=== PATIENT | female | born 1940 | race Caucasian/White ===

== ENCOUNTER 2016-12-15 09:54 | Emergency (ER) | payer MEDICARE, OTHER ==
[~2016-12-15] VITALS: Ht 165.1 cm; Wt 72.0 kg
[~2016-12-15 09:54] MED LIST: CLON0.5T PO; COLA100C3 PO; ESCI10TA PO; LORA-373 PO; LORA1TAB12 PO; NAME10TA PO; PANT40TA3 PO; SYNT88TA PO
[2016-12-15 10:00] VITALS: BP 120/84; PULSE 84; RESP 16; TEMP 98; O2SAT 96
--- NOTE | 2016-12-15 10:10 | PD ---
HPI Chief Complaint: Complaint Time Seen by Provider: 10:03 Travel History International Travel<30 days: No Contact w/Intl Traveler<30days: No Traveled to known affect area: No History of Present Illness HPI MORE CONFUSION PER DAUGHTER AND 1 WEEK H/O LOWER ABD PAIN?, APPARENTLY HAD OUTPT URINE TEST BUT NO RESULTS YET, DAUGHTER BRINGS PT IN FOR FURTHER EVALUATION PFSH Past Medical History Hx Anticoagulant Therapy: Yes (81 MG ASA) Arthritis: Yes Asthma: No Blood Disorders: No Anxiety: Yes Depression: No Heart Rhythm Problems: No Cancer: Yes (SALAVA GLAND) Cardiovascular Problems: No High Cholesterol: No Chemotherapy: Yes Chest Pain: No Congestive Heart Failure: No COPD: No Cerebrovascular Accident: Yes Diabetes: No Diminished Hearing: Yes Endocrine: Yes Gastrointestinal Disorders: Yes (CONSTIPATION) Glaucoma: No Genitourinary: Yes (BURNING) Headaches: No Hepatitis: No Hiatal Hernia: No Hypertension: No Immune Disorder: No Implanted Vascular Access Dvce: Yes Kidney Stones: No Musculoskeletal: Yes (BILATERAL KNEE REPLACEMENT) Neurologic: No Psychiatric: Yes Reproductive: No Respiratory: No Immunizations Current: No Migraines: No Radiation Therapy: Yes (2007) Renal Failure: No Seizures: No Sleep Apnea: Yes (POSSIBLE) Thyroid Disease: Yes (THYROIDECTOMY) PNEUMOCCOCAL Vaccine (Year): 1 Menopausal: Yes Past Surgical History AICD: No Endocrine Surgery: Yes (THYROIDECTOMY) Eye Surgery: Yes (UPPER BLEP-GIULIA) Genitourinary Surgery: Yes (ANTERIOR REPAIR) Gynecologic Surgery: Yes (GIULIA BREAST REDUCTION) Hysterectomy: Yes Insulin Pump: No Joint Replacement: Yes (LEFT KNEE;RIGHT KNEE) Neurologic Surgery: Yes (LUMBAR LAMINECTOMY) Oral Surgery: Yes (JAW REP (YOUTH), SALIVARY GLAND CANCER SX) Pacemaker: No Thoracic Surgery: Yes (CLAVICLE REPAIR.) Other Surgery: Yes (FR JAW) Social History Alcohol Use: No Tobacco Use: No Substance Use: No Allergies-Medications (Allergen,Severity, Reaction): Coded Allergies: Penicillin (Verified Allergy, Intermediate, HIVES, 12/15/16) Reported Meds & Prescriptions Reported Meds & Active Scripts Active Reported Quetiapine (Quetiapine Fumarate) 25 Mg Tab 25 Mg PO BID Seroquel Xr (Quetiapine Fumarate) 1 Each [id number] Meloxicam 15 Mg Tab 15 Mg PO DAILY Escitalopram (Escitalopram Oxalate) 10 Mg Tab 10 Mg PO DAILY Docusate Sodium 100 Mg Cap 100 Mg PO DAILY Alprazolam 0.5 Mg Tab 0.5 Mg PO Q8H PRN Synthroid (Levothyroxine Sodium) 75 Mcg Tab 75 Mcg PO DAILY Clonazepam 0.5 Mg Tab 0.5 Mg PO HS Physical Exam Exam Limitations: Poor Historian Narrative GENERAL: SKIN: Warm and dry. HEAD: Atraumatic. Normocephalic. EYES: Pupils equal and round. No scleral icterus. No injection or drainage. ENT: No nasal bleeding or discharge. Mucous membranes pink and moist. NECK: Trachea midline. No JVD. CARDIOVASCULAR: Regular rate and rhythm. RESPIRATORY: No accessory muscle use. Clear to auscultation. Breath sounds equal bilaterally. GASTROINTESTINAL: Abdomen soft, MILD SUPRAPUBIC TTP, nondistended. Hepatic and splenic margins not palpable. MUSCULOSKELETAL: Extremities without clubbing, cyanosis, or edema. No obvious deformities. NEUROLOGICAL: Awake and alert. No obvious cranial nerve deficits. Motor grossly within normal limits. Five out of 5 muscle strength in the arms and legs. Normal speech. SOME SLIGHT CONFUSION BUT FOLLOWS COMMANDS WELL PSYCHIATRIC: Appropriate mood and affect; insight and judgment normal. Data Data Last Documented VS Vital Signs Date Time Temp Pulse Resp B/P Pulse Ox O2 Delivery O2 Flow Rate FiO2 12/15/16 10:28 18 98 Room Air 12/15/16 10:00 98.0 84 120/84 Orders Complete Blood Count With Diff (12/15/16 10:04) Comprehensive Metabolic Panel (12/15/16 10:04) Troponin I (12/15/16 10:04) Lipase (12/15/16 10:04) Urinalysis - C+S If Indicated (12/15/16 10:04) Ct Abd/Pel W/O Iv Contrast (12/15/16 10:04) Iv Access Insert/Monitor (12/15/16 10:04) Ecg Monitoring (12/15/16 10:04) Oximetry (12/15/16 10:04) Urine Culture (12/15/16 10:08) Levofloxacin (Levaquin) (12/15/16 11:15) Labs Laboratory Tests Test 12/15/16 12/15/16 10:08 10:20 Urine Collection Type CLEAN CATCH Urine Color YELLOW Urine Turbidity CLEAR Urine pH 6.0 Urine Specific [place] 1.012 Urine Protein NEG mg/dL Urine Glucose (UA) NEG mg/dL Urine Ketones NEG mg/dL Urine Occult Blood TRACE Urine Nitrite NEG Urine Bilirubin NEG Urine Leukocyte Esterase TRACE Urine RBC 0-3 /hpf Urine WBC 9-14 /hpf Urine Squamous Epithelial 0-5 /hpf Cells Urine Bacteria MANY /hpf Microscopic Urinalysis Comment CULTURE INDICATED Urine Collection Time 10:08 White Blood Count 3.9 TH/MM3 Red Blood Count 4.61 MIL/MM3 Hemoglobin 14.6 GM/DL Hematocrit 43.5 % Mean Corpuscular Volume 94.4 FL Mean Corpuscular Hemoglobin 31.6 PG Mean Corpuscular Hemoglobin 33.5 % Concent Red Cell Distribution Width 12.4 % Platelet Count 178 TH/MM3 Mean Platelet Volume 8.6 FL Neutrophils (%) (Auto) 59.6 % Lymphocytes (%) (Auto) 24.3 % Monocytes (%) (Auto) 7.6 % Eosinophils (%) (Auto) 7.3 % Basophils (%) (Auto) 1.2 % Neutrophils # (Auto) 2.3 TH/MM3 Lymphocytes # (Auto) 0.9 TH/MM3 Monocytes # (Auto) 0.3 TH/MM3 Eosinophils # (Auto) 0.3 TH/MM3 Basophils # (Auto) 0.0 TH/MM3 CBC Comment DIFF FINAL Differential Comment Sodium Level 147 MEQ/L Potassium Level 3.8 MEQ/L Chloride Level 111 MEQ/L Carbon Dioxide Level 27.7 MEQ/L Anion Gap 8 MEQ/L Blood Urea Nitrogen 22 MG/DL Creatinine 0.75 MG/DL Estimat Glomerular Filtration 75 ML/MIN Rate Random Glucose 82 MG/DL Calcium Level 8.4 MG/DL Total Bilirubin 0.9 MG/DL Aspartate Amino Transf 16 U/L (AST/SGOT) Alanine Aminotransferase 18 U/L (ALT/SGPT) Alkaline Phosphatase 71 U/L Troponin I LESS THAN 0.02 NG/ML Total Protein 6.3 GM/DL Albumin 3.7 GM/DL Lipase 168 U/L [facility] Medical Decision Making Medical Screen Exam Complete: Yes Emergency Medical Condition: Yes Medical Record Reviewed: Yes Differential Diagnosis DEMENTIA V UTI/PNA/INFECTION CAUSING WORSENING CONFUSION V DIVERTIC DZ V APPY V LIVER/ELECTROLYTE/RENAL ISSUES Narrative Course CMP, CBC WERE WNL, CT A/P FOUND OVARIAN CYST ON RT OVARY, NO APPY OR DIVERTIC DZ....UA C/W UTI Diagnosis Primary Impression: UTI (urinary tract infection) Qualified Code: N30.00 - Acute cystitis without hematuria Scripts Levofloxacin 500 Mg [id number] Mg PO DAILY #7 TAB Ref 0 Prov:Kingsley Siddiqui MD 12/15/16 Disposition: 01 DISCHARGE HOME Condition: Stable Kingsley Siddiqui MD Dec 15, 2016 10:10
[2016-12-15 10:14] LABS: BLOOD, URINE TRACE (NEG); GLUCOSE,URINE NEG (NEG); KETONE, URINE NEG (NEG); NITRITE,URINE NEG (NEG)
[2016-12-15] MEDS ORDERED: LEVO.075 PO (10:17)
[2016-12-15] MEDS ORDERED: DOCU100C PO (10:17)
[2016-12-15] MEDS ORDERED: ALPR0.5T3 PO (10:17)
[2016-12-15] MEDS ORDERED: ESCI10TA PO (10:18)
[2016-12-15] MEDS ORDERED: QUET-1 (10:19)
[2016-12-15] MEDS ORDERED: MELO-1 PO (10:19)
[2016-12-15] MEDS ORDERED: QUET1TAB7 PO (10:19)
[2016-12-15 10:21] LABS: METHOD OF COLLECTION CLEAN CATCH; URINE COLOR YELLOW (YELLW/STRAW)
[2016-12-15 10:22] LABS: BACTERIA, URINE MANY /hpf; COMMENT (UR) CULTURE INDICATED; CULTURE IF INDICATED CULTURE INDICATED; RBC, URINE 0-3 /hpf (0-3); SQUAMOUS EPITHELIAL CELL URINE 0-5 /hpf (0-5)
[2016-12-15 10:28] VITALS: RESP 18; O2SAT 98
[2016-12-15 10:40] LABS: AUTOMATED NEUTROPHIL # 2.3 TH/MM3 (1.8-7.7); BASOPHIL % 1.2 % (0.0-2.0); EOSINOPHIL # 0.3 TH/MM3 (0-0.4); EOSINOPHIL % 7.3 % (0.0-4.0); HEMATOCRIT 43.5 % (35.0-46.0); HEMO FLAGS DIFF FINAL; LYMPH % 24.3 % (9.0-44.0); LYMPHOCYTE # 0.9 TH/MM3 (1.0-4.8); MEAN CELL VOLUME 94.4 FL (80.0-100.0); MEAN CORPUSCULAR HEMOGLOBIN 31.6 PG (27.0-34.0); MEAN CORPUSCULAR HGB CONC 33.5 % (32.0-36.0); MONO % 7.6 % (0.0-8.0); NEUT % 59.6 % (16.0-70.0); PLATELET COUNT 178 TH/MM3 (150-450); RED BLOOD COUNT 4.61 MIL/MM3 (4.00-5.30); RED CELL DISTRIBUTION WIDTH 12.4 % (11.6-17.2); WHITE BLOOD COUNT 3.9 TH/MM3 (4.0-11.0)
[2016-12-15 10:46] LABS: CHLORIDE 111 MEQ/L (98-107); POTASSIUM 3.8 MEQ/L (3.5-5.1); SODIUM (NA) 147 MEQ/L (136-145)
[2016-12-15 10:50] LABS: ANION GAP 8 MEQ/L (5-15); BICARBONATE 27.7 MEQ/L (21.0-32.0); BLOOD UREA NITROGEN 22 MG/DL (7-18)
[2016-12-15 10:52] LABS: ALT (GPT) 18 U/L (10-53); AST (GOT) 16 U/L (15-37); GLOMERULAR FILTRATION RATE 75 ML/MIN (>89)
[2016-12-15 10:54] LABS: TOTAL BILIRUBIN ADULT 0.9 MG/DL (0.2-1.0)
--- NOTE | 2016-12-15 10:54 | RADHPO ---
EXAM DATE/TIME: 12/15/2016 10:27 [facility] COMPARISON: CT ABDOMEN & PELVIS W/O CONTRAST, December 08, 2015, 8:04. INDICATIONS : Dementia, possible urine tract infection with abdominal pain and weakness. ORAL CONTRAST: No oral contrast ingested. RADIATION DOSE: 16.71 CTDIvol (mGy) MEDICAL HISTORY : Dementia. Hernia. Cancer salivary gland with radiation 2007. SURGICAL HISTORY : Tonsillectomy. Total knee replacement, right.Bilateral breast reduction. ENCOUNTER: Initial ACUITY: 1 week PAIN SCALE: 6/10 LOCATION: Bilateral middle abdominal. TECHNIQUE: Volumetric scanning of the abdomen and pelvis was performed. Using automated exposure control and ad justment of the mA and/or kV according to patient size, radiation dose was kept as low as reasonably achievable to obtain optimal diagnostic quality images. FINDINGS: LOWER LUNGS: The visualized lower lungs are clear. LIVER: Homogeneous density without lesion. There is no dilation of the biliary tree. No calcified gallston es. SPLEEN: Normal size without lesion. PANCREAS: Within normal limits. KIDNEYS: Normal in size and shape. There is no mass, stone, or hydronephrosis. ADRENAL GLANDS: Within normal limits. VASCULAR: There is no aortic aneurysm. There is atherosclerotic disease of aorta. BOWEL/MESENTERY: The stomach, small bowel, and colon demonstrate no acute abnormality. Small hiatal hernia is present . There is no free intraperitoneal air or fluid. ABDOMINAL WALL: Within normal limits. RETROPERITONEUM: There is no lymphadenopathy. BLADDER: No wall thickening or mass. REPRODUCTIVE: The uterus is absent. In the right adnexa there is a 3.4 x 2.5 cm cystic lesion arising from the righ t ovary. This is stable compared to the prior study. Left ovary demonstrates no abnormality. INGUINAL: There is no lymphadenopathy or hernia. MUSCULOSKELETAL: There are degenerative changes throughout the lumbar spine consisting mostly of severe facet arthrosi s. There has been prior laminectomy inferiorly. Degenerative changes are present at the hip joints. CONCLUSION: 1. No acute finding is identified within the abdomen or pelvis. 2. Stable 3.4 x 2.5 cm right ovarian cystic lesion. It appears simple on this examination. Given the stability, small size, and appearance a benign process is favored. Suggest 12 month followup ultrasou nd to confirm longer-term stability. 3. Nonacute findings include small hiatal hernia and atherosclerotic disease of the aorta. Stanford Petersen MD on December 15, 2016 at 10:44 Board Certified Radiologist. This report was verified electronically.
[2016-12-15 10:55] LABS: ALKALINE PHOSPHATASE 71 U/L (45-117)
[2016-12-15] MEDS ORDERED: LEVO500T8 PO (11:08)
[2016-12-15] MEDS ORDERED: SODIUM CHLORID 0.9% 500 ML INJ 500 ML IV ONE (11:15)
[2016-12-15] MEDS ORDERED: LEVOFLOXACIN 750 MG TAB PO ONE (11:15)
[2016-12-15 11:23] VITALS: BP 170/91; PULSE 66; RESP 16; O2SAT 98
== END 2016-12-15 11:58 | disposition home or self-care (01) ==
LOC: PHED 09:54
DX: R41.0 Disorientation, unspecified (principal); N30.00 Acute cystitis without hematuria; Z86.73 Personal history of transient ischemic attack (TIA), and cerebral infarction without residual deficits; Z79.82 Long term (current) use of aspirin; E07.9 Disorder of thyroid, unspecified; Z88.0 Allergy status to penicillin
CPT/HCPCS: 74176; 80053; 81001; 83690; 84484; 85025; 87086; 96360; 99285; J7040

== ENCOUNTER 2017-06-06 19:18 | Inpatient (IN) | payer MEDICARE ==
[~2017-06-06] VITALS: Ht 160 cm; Wt 74.3 kg
[~2017-06-06 19:18] MED LIST changes: +ALPR0.5T3 PO; -COLA100C3 PO; +DOCU100C15 PO; +LEVO.075 PO; +LEVO500T8 PO; -LORA-373 PO; -LORA1TAB12 PO; +MELO15TA20 PO; -NAME10TA PO; -PANT40TA3 PO; +QUET-1; +QUET1TAB7 PO; -SYNT88TA PO
[2017-06-06 19:20] VITALS: BP 133/77; PULSE 78; RESP 16; TEMP 98.4; O2SAT 95
[2017-06-06 20:27] VITALS: O2SAT 96
[2017-06-06] MEDS ORDERED: SODIUM CHLORIDE 0.9% FLUSH 10 ML FLUSH IV FLUSH PRN (20:30)
--- NOTE | 2017-06-06 20:32 | PD ---
HPI Chief Complaint: Altered Mental Status Time Seen by Provider: 20:09 Travel History International Travel<30 days: No Contact w/Intl Traveler<30days: No Traveled to known affect area: No History of Present Illness HPI 76-year-old female presents to emergency department from her assisted living facility for auditory and visual hallucinations for 1-2 months. Daughter provides most of the history as patient does have advanced Alzheimer's disease. Daughter states that she became violent towards nursing staff today after trying to enter someone else apartment. According to the daughter, Pt says that she has children hiding in her closet and around the neighborhood. When questioning the patient she states that she is at the hospital because she was violent toward her staff. Patient denies fever, chills, chest pain, shortness of breath, headache, visual changes, abdominal pain, nausea, vomiting, diarrhea , trauma. PFSH Past Medical History Hx Anticoagulant Therapy: Yes (81 MG ASA) Arthritis: Yes Asthma: No Blood Disorders: No Anxiety: Yes Depression: No Heart Rhythm Problems: No Cancer: Yes (SALAVA GLAND) Cardiovascular Problems: No High Cholesterol: No Chemotherapy: Yes Chest Pain: No Congestive Heart Failure: No COPD: No Cerebrovascular Accident: Yes Dementia: Yes (LEWY BODY) Diabetes: No Diminished Hearing: Yes Endocrine: Yes Gastrointestinal Disorders: Yes (CONSTIPATION) Glaucoma: No Genitourinary: Yes (BURNING) Headaches: No Hepatitis: No Hiatal Hernia: No Hypertension: No Immune Disorder: No Implanted Vascular Access Dvce: Yes Kidney Stones: No Musculoskeletal: Yes (BILATERAL KNEE REPLACEMENT) Neurologic: No Psychiatric: Yes Reproductive: No Respiratory: No Immunizations Current: No Migraines: No Radiation Therapy: Yes (2007) Renal Failure: No Seizures: No Sleep Apnea: Yes (POSSIBLE) Thyroid Disease: Yes (THYROIDECTOMY) PNEUMOCCOCAL Vaccine (Year): 1 Menopausal: Yes Past Surgical History AICD: No Endocrine Surgery: Yes (THYROIDECTOMY) Eye Surgery: Yes (UPPER BLEP-GIULIA) Genitourinary Surgery: Yes (ANTERIOR REPAIR) Gynecologic Surgery: Yes (GIULIA BREAST REDUCTION) Hysterectomy: Yes Insulin Pump: No Joint Replacement: Yes (LEFT KNEE;RIGHT KNEE) Neurologic Surgery: Yes (LUMBAR LAMINECTOMY) Oral Surgery: Yes (JAW REP (YOUTH), SALIVARY GLAND CANCER SX) Pacemaker: No Thoracic Surgery: Yes (CLAVICLE REPAIR.) Other Surgery: Yes (FR JAW) Social History Alcohol Use: No Tobacco Use: No Substance Use: No Allergies-Medications (Allergen,Severity, Reaction): Coded Allergies: penicillin G (Unverified Allergy, Intermediate, HIVES, 06/06/17) Reported Meds & Prescriptions Reported Meds & Active Scripts Active Reported Seroquel (Quetiapine Fumarate) 50 Mg Tab 75 Mg PO BID Meloxicam 15 Mg Tab 15 Mg PO DAILY Escitalopram (Escitalopram Oxalate) 10 Mg Tab 10 Mg PO DAILY Docusate Sodium 100 Mg Cap 100 Mg PO DAILY Alprazolam 0.5 Mg Tab 0.5 Mg PO Q8H PRN Synthroid (Levothyroxine Sodium) 75 Mcg Tab 75 Mcg PO DAILY Clonazepam 0.5 Mg Tab 0.5 Mg PO HS Review of Systems Except as stated in HPI: all other systems reviewed are Neg Physical Exam Narrative GENERAL: Well-developed well-nourished in no apparent distress. A+Ox3 SKIN: Focused skin assessment warm/dry. HEAD: Atraumatic. Normocephalic. EYES: Pupils equal and round. No scleral icterus. No injection or drainage. EOMI ENT: No nasal bleeding or discharge. Mucous membranes pink and moist. NECK: Trachea midline. No JVD. No lymphadenopathy CARDIOVASCULAR: Regular rate and rhythm. No murmur appreciated. RESPIRATORY: No accessory muscle use. Clear to auscultation. Breath sounds equal bilaterally. GASTROINTESTINAL: Abdomen soft, non-tender, nondistended. Hepatic and splenic margins not palpable. MUSCULOSKELETAL: No obvious deformities. No clubbing. No cyanosis. No edema. BACK: No CVA tenderness. No rash. No point tenderness on palpation of the spine. NEUROLOGICAL: Awake and alert. No obvious cranial nerve deficits. Motor grossly within normal limits. Normal speech. PSYCHIATRIC: Appropriate mood and affect; insight and judgment normal. Data Data Last Documented VS Vital Signs Date Time Temp Pulse Resp B/P (MAP) Pulse Ox O2 Delivery O2 Flow Rate FiO2 06/07/17 00:44 88 18 142/78 (99) 98 Room Air 06/06/17 19:20 98.4 Orders Orders Electrocardiogram (06/06/17 20:22) Complete Blood Count With Diff (06/06/17 20:22) Comprehensive Metabolic Panel (06/06/17 20:22) Thyroid Stimulating Hormone (06/06/17 20:22) Urinalysis - C+S If Indicated (06/06/17 20:22) Blood Glucose (06/06/17 20:22) Ecg Monitoring (06/06/17 20:22) Iv Access Insert/Monitor (06/06/17 20:22) Oximetry (06/06/17 20:22) Sodium Chloride 0.9% Flush (Ns Flush) (06/06/17 20:30) Drug Screen, Random Urine (06/06/17 20:22) Chest, Single Ap (06/06/17 ) Ct Brain W/O Iv Contrast(Rout) (06/06/17 ) Psych Screen (06/06/17 22:03) Quetiapine (Seroquel) (06/07/17 00:45) Clonazepam (Klonopin) (06/07/17 00:45) Admit Order (Ed Use Only) (06/07/17 00:48) Admit To Inpatient Psych (06/07/17 ) Vital Signs (Adult) CASI.Q12H.E (06/07/17 00:48) Activity Oob Ad Blanca (06/07/17 00:48) Level Of Observation (Psych) (06/07/17 00:48) Diet Heart Healthy (06/07/17 Breakfast) Basic Metabolic Panel (Bmp) (06/08/17 06:00) Admit To Inpatient Psych (06/07/17 ) Vital Signs (Adult) CASI.Q12H.E (06/07/17 00:48) Activity Oob Ad Blanca (06/07/17 00:48) Level Of Observation (Psych) (06/07/17 00:48) Basic Metabolic Panel (Bmp) (06/08/17 07:00) Lipid Profile (06/08/17 06:00) Hemoglobin (Hgb) A1c (06/08/17 06:00) Consult Hospitalist (06/07/17 ) Labs Laboratory Tests Test 06/06/17 20:30 06/06/17 21:20 White Blood Count 5.6 TH/MM3 Red Blood Count 4.21 MIL/MM3 Hemoglobin 13.6 GM/DL Hematocrit 40.0 % Mean Corpuscular Volume 95.0 FL Mean Corpuscular Hemoglobin 32.3 PG Mean Corpuscular Hemoglobin Concent 34.0 % Red Cell Distribution Width 12.4 % Platelet Count 166 TH/MM3 Mean Platelet Volume 8.4 FL Neutrophils (%) (Auto) 73.6 % Lymphocytes (%) (Auto) 13.6 % Monocytes (%) (Auto) 7.2 % Eosinophils (%) (Auto) 5.1 % Basophils (%) (Auto) 0.5 % Neutrophils # (Auto) 4.1 TH/MM3 Lymphocytes # (Auto) 0.8 TH/MM3 Monocytes # (Auto) 0.4 TH/MM3 Eosinophils # (Auto) 0.3 TH/MM3 Basophils # (Auto) 0.0 TH/MM3 CBC Comment DIFF FINAL Differential Comment Blood Urea Nitrogen 24 MG/DL Creatinine 0.93 MG/DL Random Glucose 97 MG/DL Total Protein 6.4 GM/DL Albumin 3.7 GM/DL Calcium Level 8.2 MG/DL Alkaline Phosphatase 58 U/L Aspartate Amino Transf (AST/SGOT) 16 U/L Alanine Aminotransferase (ALT/SGPT) 18 U/L Total Bilirubin 0.5 MG/DL Sodium Level 141 MEQ/L Potassium Level 4.2 MEQ/L Chloride Level 107 MEQ/L Carbon Dioxide Level 28.9 MEQ/L Anion Gap 5 MEQ/L Estimat Glomerular Filtration Rate 59 ML/MIN Thyroid Stimulating Hormone 3rd Gen 0.939 uIU/ML Urine Color LIGHT-YELLOW Urine Turbidity CLEAR Urine pH 6.5 Urine Specific [place] 1.013 Urine Protein NEG mg/dL Urine Glucose (UA) NEG mg/dL Urine Ketones NEG mg/dL Urine Occult Blood NEG Urine Nitrite NEG Urine Bilirubin NEG Urine Urobilinogen LESS THAN 2.0 MG/DL Urine Leukocyte Esterase NEG Urine RBC 1 /hpf Urine WBC LESS THAN 1 /hpf Urine Squamous Epithelial Cells 1 /hpf Urine Amorphous Sediment RARE Urine Mucus FEW /lpf Microscopic Urinalysis Comment CATH-CULT NOT IND Urine Opiates Screen NEG Urine Barbiturates Screen NEG Urine Amphetamines Screen NEG Urine Benzodiazepines Screen POS Urine Cocaine Screen NEG Urine Cannabinoids Screen NEG MDM Medical Decision Making Medical Screen Exam Complete: Yes Emergency Medical Condition: Yes Differential Diagnosis Delirium, acute on chronic Alzheimer's disease, sundowner syndrome, CVA, urinary tract infection Narrative Course 76-year-old female presents to emergency department from her assisted living facility for auditory and visual hallucinations for 1-2 months. Daughter provides most of the history as patient does have advanced Alzheimer's disease. Daughter states that she became violent towards nursing staff today after trying to enter someone else apartment. According to the daughter, Pt says that she has children hiding in her closet and around the neighborhood. When questioning the patient she states that she is at the hospital because she was violent toward her staff. Patient denies fever, chills, chest pain, shortness of breath, headache, visual changes, abdominal pain, nausea, vomiting, diarrhea , trauma. Vital signs stable EKG- sinus rhythm without ST elevations or depressions. Laboratory Tests Test 06/06/17 20:30 06/06/17 21:20 White Blood Count 5.6 TH/MM3 Red Blood Count 4.21 MIL/MM3 Hemoglobin 13.6 GM/DL Hematocrit 40.0 % Mean Corpuscular Volume 95.0 FL Mean Corpuscular Hemoglobin 32.3 PG Mean Corpuscular Hemoglobin Concent 34.0 % Red Cell Distribution Width 12.4 % Platelet Count 166 TH/MM3 Mean Platelet Volume 8.4 FL Neutrophils (%) (Auto) 73.6 % Lymphocytes (%) (Auto) 13.6 % Monocytes (%) (Auto) 7.2 % Eosinophils (%) (Auto) 5.1 % Basophils (%) (Auto) 0.5 % Neutrophils # (Auto) 4.1 TH/MM3 Lymphocytes # (Auto) 0.8 TH/MM3 Monocytes # (Auto) 0.4 TH/MM3 Eosinophils # (Auto) 0.3 TH/MM3 Basophils # (Auto) 0.0 TH/MM3 CBC Comment DIFF FINAL Differential Comment Blood Urea Nitrogen 24 MG/DL Creatinine 0.93 MG/DL Random Glucose 97 MG/DL Total Protein 6.4 GM/DL Albumin 3.7 GM/DL Calcium Level 8.2 MG/DL Alkaline Phosphatase 58 U/L Aspartate Amino Transf (AST/SGOT) 16 U/L Alanine Aminotransferase (ALT/SGPT) 18 U/L Total Bilirubin 0.5 MG/DL Sodium Level 141 MEQ/L Potassium Level 4.2 MEQ/L Chloride Level 107 MEQ/L Carbon Dioxide Level 28.9 MEQ/L Anion Gap 5 MEQ/L Estimat Glomerular Filtration Rate 59 ML/MIN Thyroid Stimulating Hormone 3rd Gen 0.939 uIU/ML Urine Color LIGHT-YELLOW Urine Turbidity CLEAR Urine pH 6.5 Urine Specific [place] 1.013 Urine Protein NEG mg/dL Urine Glucose (UA) NEG mg/dL Urine Ketones NEG mg/dL Urine Occult Blood NEG Urine Nitrite NEG Urine Bilirubin NEG Urine Urobilinogen LESS THAN 2.0 MG/DL Urine Leukocyte Esterase NEG Urine RBC 1 /hpf Urine WBC LESS THAN 1 /hpf Urine Squamous Epithelial Cells 1 /hpf Urine Amorphous Sediment RARE Urine Mucus FEW /lpf Microscopic Urinalysis Comment CATH-CULT NOT IND Urine Opiates Screen NEG Urine Barbiturates Screen NEG Urine Amphetamines Screen NEG Urine Benzodiazepines Screen POS Urine Cocaine Screen NEG Urine Cannabinoids Screen NEG Last [address] 06/06/17 0000 Signed Impressions: Service Date/Time: May 22:39 - CONCLUSION: 1. Chronic periventricular and subcortical white matter small vessel ischemic changes are stable. 2. No acute infarct, acute hemorrhage, mass effect or extra-axial fluid collections. Brock Chan MD Chest X-Ray 06/06/17 0000 Signed Impressions: Service Date/Time: May 22:17 - CONCLUSION: 1. Minimal left basilar streakiness consistent with atelectasis. 2. Elevation of the left hemidiaphragm. Brock Chan MD Patient lives in [facility]. Daughter provides most of the history of this patient. Patient does follow Dr. Sweeney for Alzheimer's disease. Her primary care physician is Dr. Bailon. Patient has no complaints today but does understand why she is here. Patient apparently had a similar episode in August this year where she was prescribed Seroquel. Patient takes 75 mg twice a day. Daughter would appreciated and evaluation and potentially medication change. Patient is medically cleared to have a psych evaluation. Condition: Stable Yvonne Jimenez Jun 06, 2017 20:32
[2017-06-06 20:49] LABS: AUTOMATED NEUTROPHIL # 4.1 TH/MM3 (1.8-7.7); BASOPHIL % 0.5 % (0.0-2.0); EOSINOPHIL # 0.3 TH/MM3 (0-0.4); EOSINOPHIL % 5.1 % (0.0-4.0); HEMO FLAGS DIFF FINAL; LYMPH % 13.6 % (9.0-44.0); LYMPHOCYTE # 0.8 TH/MM3 (1.0-4.8); MEAN CORPUSCULAR HEMOGLOBIN 32.3 PG (27.0-34.0); MONO % 7.2 % (0.0-8.0); NEUT % 73.6 % (16.0-70.0); PLATELET COUNT 166 TH/MM3 (150-450); RED BLOOD COUNT 4.21 MIL/MM3 (4.00-5.30); RED CELL DISTRIBUTION WIDTH 12.4 % (11.6-17.2); WHITE BLOOD COUNT 5.6 TH/MM3 (4.0-11.0)
[2017-06-06 21:10] LABS: ALT (GPT) 18 U/L (10-53)
[2017-06-06 21:20] LABS: ALKALINE PHOSPHATASE 58 U/L (45-117); TOTAL BILIRUBIN ADULT 0.5 MG/DL (0.2-1.0)
[2017-06-06 21:23] LABS: ANION GAP 5 MEQ/L (5-15); AST (GOT) 16 U/L (15-37); BICARBONATE 28.9 MEQ/L (21.0-32.0); BLOOD UREA NITROGEN 24 MG/DL (7-18); CHLORIDE 107 MEQ/L (98-107); GLOMERULAR FILTRATION RATE 59 ML/MIN (>89); SODIUM (NA) 141 MEQ/L (136-145)
[2017-06-06 21:28] LABS: POTASSIUM 4.2 MEQ/L (3.5-5.1)
[2017-06-06 21:41] LABS: BLOOD, URINE NEG (NEG); COMMENT (UR) CATH-CULT NOT IND; CULTURE IF INDICATED CATH CULTURE NOT IND; GLUCOSE,URINE NEG (NEG); KETONE, URINE NEG (NEG); MUCUS URINE FEW /lpf (OCC); NITRITE,URINE NEG (NEG); PH, URINE 6.5 (5.0-8.5); SQUAMOUS EPITHELIAL CELL URINE 1 /hpf (0-5); URINE COLOR LIGHT-YELLOW (YELLW/STRAW)
--- NOTE | 2017-06-06 22:31 | RADRPT ---
EXAM DATE/TIME: 06/06/2017 22:17 [facility] COMPARISON: CHEST SINGLE AP, June 12, 2016, 11:34. INDICATIONS : AMS for 1-2 months. MEDICAL HISTORY : Stroke. Dementia. Alzheimer's disease. SURGICAL HISTORY : None. ENCOUNTER: Initial ACUITY: 2 months PAIN SCORE: 0/10 LOCATION: Bilateral chest FINDINGS: Minimal left basilar streakiness is noted consistent with atelectasis. There is elevation of the left hemidiaphragm. The heart is stable. The right lung is clear. The pulmonary vascular pattern is pierce l. CONCLUSION: 1. Minimal left basilar streakiness consistent with atelectasis. 2. Elevation of the left hemidiaphragm. Brock Chan MD on June 06, 2017 at 22:29 Board Certified Radiologist. This report was verified electronically.
--- NOTE | 2017-06-06 22:51 | RADRPT ---
EXAM DATE/TIME: 06/06/2017 22:39 [facility] COMPARISON: CT BRAIN W/O CONTRAST, December 13, 2015, 12:01. INDICATIONS : Altered mental status. RADIATION DOSE: 31.41 CTDIvol (mGy) MEDICAL HISTORY : Alzheimer's; Cardiovascular disease salivary gland cancer SURGICAL HISTORY : Thyroidectomy. ENCOUNTER: Initial ACUITY: 1 day PAIN SCALE: 0/10 LOCATION: cranial TECHNIQUE: Multiple contiguous axial images were obtained of the head. Using automated exposure control and adj ustment of the mA and/or kV according to patient size, radiation dose was kept as low as reasonably a chievable to obtain optimal diagnostic quality images. DICOM format image data is available electro nically for review and comparison. FINDINGS: CEREBRUM: The ventricles are normal for age. No evidence of midline shift, mass lesion, hemorrhage or acute in farction. No extra-axial fluid collections are seen. Chronic periventricular and subcortical white m atter small vessel ischemic changes are noted and are stable. POSTERIOR FOSSA: The cerebellum and brainstem are intact. The 4th ventricle is midline. The cerebellopontine angle i s unremarkable. EXTRACRANIAL: The visualized portion of the orbits is intact. SKULL: The calvaria is intact. No evidence of skull fracture. CONCLUSION: 1. Chronic periventricular and subcortical white matter small vessel ischemic changes are stable. 2. No acute infarct, acute hemorrhage, mass effect or extra-axial fluid collections. Brock Chan MD on June 06, 2017 at 22:48 Board Certified Radiologist. This report was verified electronically.
[2017-06-07] MEDS ORDERED: SERO50TA PO (00:25)
[2017-06-07] MEDS ORDERED: clonazePAM 0.5 MG TAB PO SCH (00:37)
[2017-06-07 00:44] VITALS: BP 142/78; PULSE 88; RESP 18; O2SAT 98
[2017-06-07] MEDS ORDERED: QUEtiapine FUMARATE 25 MG TAB PO ONE (00:45)
[2017-06-07] MEDS ORDERED: clonazePAM 0.5 MG TAB PO ONE (00:45)
[2017-06-07] MEDS ORDERED: LORazepam 0.5 MG TAB age > 65 yrs PO PRN (01:00)
[2017-06-07] MEDS ORDERED: MAGNESIUM HYDROXIDE SUSP 30 ML CUP PO PRN (01:00)
[2017-06-07] MEDS ORDERED: diphenhydrAMINE HCL 50 MG/ML VIAL - HS PRN IM (01:00)
[2017-06-07] MEDS ORDERED: BENZTROPINE MESYLATE 2 MG/2 ML VIAL IM PRN (01:00)
[2017-06-07] MEDS ORDERED: ACETAMINOPHEN 325 MG TAB PO PRN (01:00)
[2017-06-07] MEDS ORDERED: ALUMINUM/MAGNESIUM/SIMETH 30 ML CUP PO PRN (01:00)
[2017-06-07] MEDS ORDERED: LORazepam 2 MG/ML VIAL - age > 65 yrs IM PRN (01:00)
[2017-06-07] MEDS ORDERED: diphenhydrAMINE HCL 50 MG/ML VIAL IM PRN (01:00)
[2017-06-07] MEDS ORDERED: diphenhydrAMINE HCL 50 MG CAP - HS PRN PO (01:00)
[2017-06-07] MEDS ORDERED: diphenhydrAMINE HCL 50 MG CAP PO PRN (01:00)
[2017-06-07] MEDS ORDERED: traZODone HCL 50 MG TAB PO PRN (01:00)
[2017-06-07] MEDS ORDERED: BENZTROPINE MESYLATE 1 MG TAB PO PRN (01:00)
[2017-06-07 01:40] VITALS: BP 138/88; PULSE 81; RESP 16; TEMP 97.8; O2SAT 96
--- NOTE | 2017-06-07 08:02 | EKG ---
Date Performed: 06/06/2017 Time Performed: 20:34:13 PTAGE: 76 years EKG: Baseline artifact present Sinus rhythm LOW QRS VOLTAGE IN PRECORDIAL LEADS possible INFERIOR MYOCARDIAL INFARCTION ABNORMAL ECG No signific ant change from prior electrocardiogram. PREVIOUS TRACING : 06/06/2017 20.33 DOCTOR: Chandler Dao Interpretating Date/Time 06/07/2017 08:01:18
[2017-06-07] MEDS ORDERED: QUEtiapine FUMARATE 25 MG TAB PO SCH (09:00)
--- NOTE | 2017-06-07 09:28 | PD.CONS ---
HPI Service [facility] Hospitalists Consult Requested By Psychiatry Reason for Consult Medical management Primary Care Physician Nicolas Bailon MD Diagnoses: (1) Hypothyroidism (2) Dementia due to Alzheimer's disease History of Present Illness Ms. Darling is a pleasant 76-year-old female with a history of Alzheimer's dementia who presented to the emergency department on 06/06/2017 due to auditory and visual hallucinations that has been going on for 1-2 months. Patient was admitted to the psychiatry unit. Hospitalist service was consulted for medical management. Patient currently does not have any medical concerns. She denies any chest pain, shortness of breath, cough, fever, abdominal pain. Denies any changes in bowel or bladder habits. Review of Systems Except as stated in HPI: all other systems reviewed are Neg Past Family Social History Allergies: Coded Allergies: penicillin G (Unverified Allergy, Intermediate, HIVES, 06/06/17) Past Medical History Alzheimer's dementia Hypothyroidism Past Surgical History Bilateral knee replacement Thyroid surgery Bilateral breast reduction surgery Lumbar laminectomy Clavicle repair Active Ordered Medications Current Medications Medications (Trade) Dose Ordered Sig/Tj Route Start Time Stop Time Status Last Admin (NS Flush) 2 ml UNSCH PRN IV FLUSH 06/06/17 20:30 (Ativan) 0.5 mg Q12H PRN PO 06/07/17 01:00 (Ativan Inj) 0.5 mg Q12H PRN IM 06/07/17 01:00 (Atarax) 50 mg Q6H PRN PO 06/07/17 01:00 (Benadryl) 50 mg Q6H PRN PO 06/07/17 01:00 (Benadryl Inj) 50 mg Q6H PRN IM 06/07/17 01:00 (Cogentin) 1 mg Q12H PRN PO 06/07/17 01:00 (Cogentin Inj) 1 mg Q12H PRN IM 06/07/17 01:00 (Benadryl) 50 mg HS PRN PO 06/07/17 01:00 (Benadryl Inj) 50 mg HS PRN IM 06/07/17 01:00 (Desyrel) 50 mg HS PRN PO 06/07/17 01:00 (Tylenol) 650 mg Q4H PRN PO 06/07/17 01:00 (Milk Of Magnesia Liq) 30 ml DAILY PRN PO 06/07/17 01:00 (Mag-Al Plus Susp Liq) 30 ml Q6H PRN PO 06/07/17 01:00 (SEROquel) 12.5 mg BID PO 06/07/17 09:00 06/07/17 08:47 Family History Patient denies any family history of Alzheimer's or Parkinson's. Social History She denies using tobacco, alcohol, illicit drugs. Physical Exam Vital Signs Vital Signs Date Time Temp Pulse Resp B/P (MAP) Pulse Ox O2 Delivery O2 Flow Rate FiO2 06/07/17 01:40 97.8 81 16 138/88 (105) 96 06/07/17 01:32 06/07/17 00:44 88 18 142/78 (99) 98 Room Air 06/06/17 20:27 96 Room Air 06/06/17 19:20 98.4 78 16 133/77 (95) 95 Room Air Physical Exam GENERAL: This is a well-nourished, well-developed patient, in no apparent distress. SKIN: No rashes, ecchymoses or lesions. Cool and dry. HEAD: Atraumatic. Normocephalic. No temporal or scalp tenderness. EYES: Pupils equal round and reactive. Extraocular motions intact. No scleral icterus. No injection or drainage. ENT: Nose without bleeding, purulent drainage or septal hematoma. Throat without erythema, tonsillar hypertrophy or exudate. Uvula midline. Airway patent. NECK: Trachea midline. No JVD or lymphadenopathy. Supple, nontender, no meningeal signs. CARDIOVASCULAR: Regular rate and rhythm without murmurs, gallops, or rubs. RESPIRATORY: Clear to auscultation. Breath sounds equal bilaterally. No wheezes , rales, or rhonchi. GASTROINTESTINAL: Abdomen soft, non-tender, nondistended. No hepato-splenomegaly , or palpable masses. No guarding. MUSCULOSKELETAL: Extremities without clubbing, cyanosis, or edema. No joint tenderness, effusion, or edema noted. No calf tenderness. Negative Homans sign bilaterally. NEUROLOGICAL: Awake and alert. Cranial nerves II through XII intact. Motor and sensory grossly within normal limits. Five out of 5 muscle strength in all muscle groups. Normal speech. Laboratory Laboratory Tests Test 06/06/17 20:30 06/06/17 21:20 White Blood Count 5.6 Red Blood Count 4.21 Hemoglobin 13.6 Hematocrit 40.0 Mean Corpuscular Volume 95.0 Mean Corpuscular Hemoglobin 32.3 Mean Corpuscular Hemoglobin Concent 34.0 Red Cell Distribution Width 12.4 Platelet Count 166 Mean Platelet Volume 8.4 Neutrophils (%) (Auto) 73.6 Lymphocytes (%) (Auto) 13.6 Monocytes (%) (Auto) 7.2 Eosinophils (%) (Auto) 5.1 Basophils (%) (Auto) 0.5 Neutrophils # (Auto) 4.1 Lymphocytes # (Auto) 0.8 Monocytes # (Auto) 0.4 Eosinophils # (Auto) 0.3 Basophils # (Auto) 0.0 CBC Comment DIFF FINAL Differential Comment Blood Urea Nitrogen 24 Creatinine 0.93 Random Glucose 97 Total Protein 6.4 Albumin 3.7 Calcium Level 8.2 Alkaline Phosphatase 58 Aspartate Amino Transf (AST/SGOT) 16 Alanine Aminotransferase (ALT/SGPT) 18 Total Bilirubin 0.5 Sodium Level 141 Potassium Level 4.2 Chloride Level 107 Carbon Dioxide Level 28.9 Anion Gap 5 Estimat Glomerular Filtration Rate 59 Thyroid Stimulating Hormone 3rd Gen 0.939 Urine Color LIGHT-YELLOW Urine Turbidity CLEAR Urine pH 6.5 Urine Specific [place] 1.013 Urine Protein NEG Urine Glucose (UA) NEG Urine Ketones NEG Urine Occult Blood NEG Urine Nitrite NEG Urine Bilirubin NEG Urine Urobilinogen LESS THAN 2.0 Urine Leukocyte Esterase NEG Urine RBC 1 Urine WBC LESS THAN 1 Urine Squamous Epithelial Cells 1 Urine Amorphous Sediment RARE Urine Mucus FEW Microscopic Urinalysis Comment CATH-CULT NOT IND Urine Opiates Screen NEG Urine Barbiturates Screen NEG Urine Amphetamines Screen NEG Urine Benzodiazepines Screen POS Urine Cocaine Screen NEG Urine Cannabinoids Screen NEG Result Diagram: 06/06/17202906/06/172029 Imaging Last Impressions Head CT 06/06/17 0000 Signed Impressions: Service Date/Time: May 22:39 - CONCLUSION: 1. Chronic periventricular and subcortical white matter small vessel ischemic changes are stable. 2. No acute infarct, acute hemorrhage, mass effect or extra-axial fluid collections. Brock Chan MD Chest X-Ray 06/06/17 0000 Signed Impressions: Service Date/Time: May 22:17 - CONCLUSION: 1. Minimal left basilar streakiness consistent with atelectasis. 2. Elevation of the left hemidiaphragm. Brock Chan MD Assessment and Plan Problem List: (1) Dementia due to Alzheimer's disease ICD Code: G30.9 - Alzheimer's disease, unspecified; F02.80 - Dementia in other diseases classified elsewhere without behavioral disturbance Status: Acute (2) Hypothyroidism ICD Code: E03.9 - Hypothyroidism, unspecified Status: Chronic Assessment and Plan Ms. Darling is a pleasant 76-year-old female with a history of hypothyroidism, Alzheimer's dementia who presented to the emergency department on 06/06/2017 due to one to 2 month long duration of visual and auditory hallucinations. Patient currently does not have any medical concerns. - Alzheimer's dementia - continue outpatient follow-up with neurology. - Acute psychosis - patient is currently on Seroquel. Management per psychiatry. - Hypothyroidism - continue levothyroxine 75 g daily. TSH 0.939. Full code. Ambulation. Patient is hemodynamically stable. We'll sign off. Please call us with any questions. Bianca Cool DO Jun 07, 2017 9:28 am
--- NOTE | 2017-06-07 13:44 | HHI.HP ---
Provisional Diagnosis Admission Date Jun 07, 2017 at 00:54 [place] I. Dimension other diseases f 02.81, other Alzheimer's disease G 30.8 Certification of Person's Competence To Provide Express and Informed Consent I have personally examined Sonam Darling , a person being served at [facility] on, Jun 07, 2017 13:31. Express and informed consent means consent voluntarily given in writing, by a competent person, after sufficient explanation and disclosure of the subject matter involved to enable the person to make a knowing and willful decision without any element of force, fraud, deceit, duress, or other form of constraint or coercion. This person is 18 years of age or older, is not now known to be incompetent to consent to treatment with a guardian advocate, and does not have a health care surrogate or proxy currently making medical treatment decisions. I have found this person to be one of the following: [] Competent to provide express and informed consent, as defined above, for voluntary admission to this facility and is competent to provide express and informed consent for treatment. He/she has the consistent capacity to make well reasoned, willful, and knowing decisions concerning his or her medical or mental health treatment. The person fully and consistently understands the purpose of the admission for examination/placement and is fully capable of personally exercising all rights assured under [place] Incompetent to provide express and informed consent to voluntary admission, and this is incompetent to provide express and informed consent to treatment. The person must be transferred to involuntary status and a petition for a guardian advocate filed with the Circuit Court. [] Refusing to provide express and informed consent to voluntary admission but is competent to provide express and informed consent for treatment. The person must be discharged or transferred to involuntary status. Form shall be completed within 24 hours of a person's arrival at the receiving facility and filed in the clinical record of each person: 1. Admitted on a voluntary basis 2. Permitted to provide express and informed consent to his/her own treatment 3. Allowed to transfer from involuntary to voluntary status 4. Prior to permitting a person to consent to his or her own treatment after having been previously found incompetent to consent to treatment. History of Present Illness Capacity: Lacks Capacity Psych Chief Complaint: patient demented delusional aggressive HPI Patient is a 76-year-old white female who comes here under [place] act signed been illegible signature dated 06/07/17 at 002 2 PM that document reviewed stating actively hallucinating and delusional. Patient seen screened in the ED urine toxicology positive for benzodiazepines. It appears the patient is living in an residential facility with her second of 30+ years believes that she has multiple children they've been held and the apartment next to hers was pounding on the door becoming very threatening delusional and aggressive situation. Was bar-to-bar ED showed similar behaviors in the ED necessitating an ETO. At the present time patient sitting quietly in her room on 2600. She is calm quite pleasant with me but oriented only to self. When asked about her "children" she became quite ambiguous saying she has 8 or 10 children but unable to give any further details. She denies any prior psychiatric contact hospitalization psychotropic medication. Though she has been seen in consultation here in September 2015 diagnosis of dementia at that time I will also call the patient's daughter Rose at [phone] verifies the history of dementia, and these behavioral disturbances. It appears they have attempted to titrate Seroquel to help her behaviors but is not been very successful. Daughter verifies the no past psychiatric history prior to the diagnosis of dementia. Daughter also states they have been a social drinker in the past. But denies other drug use. At this time patient does meet criteria for involuntary psychiatric hospitalization the [place] act. Also for she does not have capacity thus I'll ask for healthcare surrogate and guarded advocate. We will chest with patient the 2500 unit we will adjust the patient's Seroquel to 50 mg noon and 4 PM and 8 PM. We'll discontinue her Ativan and allow the small dose of Klonopin at at bedtime. We'll meet with the patient's daughter around noon on Sunday 06/10. We did need to discuss placement issues Review of Systems ROS Limitations: Clinical Condition, Altered Mental Status Past Psych History Psychological trauma history Patient denies daughter denies Violence risk - others (6 mos) Patient somewhat aggressive with her neighbor due to delusions relating to her "children" Violence risk - self (6 mos) Low Substance Abuse History Drugs/Alcohol past 12 months Denies Past Family Social History Coded Allergies: penicillin G (Unverified Allergy, Intermediate, HIVES, 06/06/17) Reported Medications Meloxicam (Meloxicam) 15 Mg Tab, 15 MG PO DAILY for Arthritis Pain, #30 TAB 0 Refills 12/15/16 Escitalopram (Escitalopram) 10 Mg Tab, 10 MG PO DAILY, #30 TAB 0 Refills 12/15/16 Docusate Sodium (Docusate Sodium) 100 Mg Cap, 100 MG PO DAILY for Prevent Constipation, #60 CAP 0 Refills 12/15/16 Levothyroxine (Synthroid) 75 Mcg Tab, 75 MCG PO DAILY for Thyroid, #30 TAB 0 Refills 12/15/16 Clonazepam (Clonazepam) 0.5 Mg Tab, 0.5 MG PO HS, #60 TAB 0 Refills 06/12/16 Discontinued Reported Medications Quetiapine (Seroquel) 50 Mg Tab, 75 MG PO BID, #60 TAB 0 Refills 06/07/17 Quetiapine (Quetiapine) 25 Mg Tab, 25 MG PO BID, #60 TAB 0 Refills 12/15/16 Quetiapine Fumarate (Seroquel Xr) 1 Each [id number] 12/15/16 Alprazolam (Alprazolam) 0.5 Mg Tab, 0.5 MG PO Q8H Y for ANXIETY, TAB 0 Refills 12/15/16 Discontinued Scripts Levofloxacin (Levofloxacin) 500 Mg Tablet, 500 MG PO DAILY for Infection, #7 TAB 0 Refills Prov:Kingsley Siddiqui MD 12/15/16 Current Medications Medications (Trade) Dose Ordered Sig/Tj Route Start Time Stop Time Status Last Admin (NS Flush) 2 ml UNSCH PRN IV FLUSH 06/06/17 20:30 (Ativan) 0.5 mg Q12H PRN PO 06/07/17 01:00 (Ativan Inj) 0.5 mg Q12H PRN IM 06/07/17 01:00 (Atarax) 50 mg Q6H PRN PO 06/07/17 01:00 (Benadryl) 50 mg Q6H PRN PO 06/07/17 01:00 (Benadryl Inj) 50 mg Q6H PRN IM 06/07/17 01:00 (Cogentin) 1 mg Q12H PRN PO 06/07/17 01:00 (Cogentin Inj) 1 mg Q12H PRN IM 06/07/17 01:00 (Benadryl) 50 mg HS PRN PO 06/07/17 01:00 (Benadryl Inj) 50 mg HS PRN IM 06/07/17 01:00 (Desyrel) 50 mg HS PRN PO 06/07/17 01:00 (Tylenol) 650 mg Q4H PRN PO 06/07/17 01:00 (Milk Of Magnesia Liq) 30 ml DAILY PRN PO 06/07/17 01:00 (Mag-Al Plus Susp Liq) 30 ml Q6H PRN PO 06/07/17 01:00 (SEROquel) 12.5 mg BID PO 06/07/17 09:00 06/07/17 08:47 (Synthroid) 75 mcg DAILY@0600 PO 06/08/17 06:00 Family Psych History Unknown at this time due to patient's cognitive disability Social History Patient lives with second in a residential facility Patient's Strengths (min. 2) Patient verbal pleasant irritable [facility] Physical Exam Patient seen and screened in ED exam reviewed and agreed with patient sitting quietly and that her bed, her walkers standing next to her she is in no acute distress, no respiratory distress no complaints of abdominal pain patient moving all 4 extremities without difficulty Vital Signs Vital Signs Date Time Temp Pulse Resp B/P (MAP) Pulse Ox O2 Delivery O2 Flow Rate FiO2 06/07/17 01:40 97.8 81 16 138/88 (105) 96 06/07/17 00:44 Room Air I/O 06/07/17 06/07/17 06/08/17 08:00 16:00 00:00 Intake Total 240 ml Balance 240 ml Lab Results Test 06/06/17 20:30 06/06/17 21:20 White Blood Count 5.6 TH/MM3 Red Blood Count 4.21 MIL/MM3 Hemoglobin 13.6 GM/DL Hematocrit 40.0 % Mean Corpuscular Volume 95.0 FL Mean Corpuscular Hemoglobin 32.3 PG Mean Corpuscular Hemoglobin Concent 34.0 % Red Cell Distribution Width 12.4 % Platelet Count 166 TH/MM3 Mean Platelet Volume 8.4 FL Neutrophils (%) (Auto) 73.6 % Lymphocytes (%) (Auto) 13.6 % Monocytes (%) (Auto) 7.2 % Eosinophils (%) (Auto) 5.1 % Basophils (%) (Auto) 0.5 % Neutrophils # (Auto) 4.1 TH/MM3 Lymphocytes # (Auto) 0.8 TH/MM3 Monocytes # (Auto) 0.4 TH/MM3 Eosinophils # (Auto) 0.3 TH/MM3 Basophils # (Auto) 0.0 TH/MM3 CBC Comment DIFF FINAL Differential Comment Blood Urea Nitrogen 24 MG/DL Creatinine 0.93 MG/DL Random Glucose 97 MG/DL Total Protein 6.4 GM/DL Albumin 3.7 GM/DL Calcium Level 8.2 MG/DL Alkaline Phosphatase 58 U/L Aspartate Amino Transf (AST/SGOT) 16 U/L Alanine Aminotransferase (ALT/SGPT) 18 U/L Total Bilirubin 0.5 MG/DL Sodium Level 141 MEQ/L Potassium Level 4.2 MEQ/L Chloride Level 107 MEQ/L Carbon Dioxide Level 28.9 MEQ/L Anion Gap 5 MEQ/L Estimat Glomerular Filtration Rate 59 ML/MIN Thyroid Stimulating Hormone 3rd Gen 0.939 uIU/ML Urine Color LIGHT-YELLOW Urine Turbidity CLEAR Urine pH 6.5 Urine Specific [place] 1.013 Urine Protein NEG mg/dL Urine Glucose (UA) NEG mg/dL Urine Ketones NEG mg/dL Urine Occult Blood NEG Urine Nitrite NEG Urine Bilirubin NEG Urine Urobilinogen LESS THAN 2.0 MG/DL Urine Leukocyte Esterase NEG Urine RBC 1 /hpf Urine WBC LESS THAN 1 /hpf Urine Squamous Epithelial Cells 1 /hpf Urine Amorphous Sediment RARE Urine Mucus FEW /lpf Microscopic Urinalysis Comment CATH-CULT NOT IND Urine Opiates Screen NEG Urine Barbiturates Screen NEG Urine Amphetamines Screen NEG Urine Benzodiazepines Screen POS Urine Cocaine Screen NEG Urine Cannabinoids Screen NEG Mental Status Examination Appearance: Appropriate Consciousness: Alert Orientation: Person (vaguely) Motor Activity: Other (use his walker) Speech: Unremarkable Language: Adequate Fund of Knowledge: Adequate Attention and Concentration: Easily Distracted Memory: Impaired Mood: Anxious, Other (mildly dysphoric) Affect: Other (decreased range and intensity) Thought Process & Associations: Disorganized Thought Content: Bizarre thinking, Delusional Hallucination Type: None Delusion Type: Bizarre Suicidal Ideation: No Suicidal Plan: No Suicidal Intention: No Homicidal Ideation: No Homicidal Plan: No Homicidal Intention: No Insight: Poor Judgment: Poor Assessment & Plan Problem List: (1) OTHER ALZHEIMER'S DISEASE ICD Codes: G30.8 - OTHER ALZHEIMER'S DISEASE (2) DEMENTIA IN OTH DISEASES CLASSD ELSWHR W BEHAVIORAL DISTURB ICD Codes: F02.81 - DEMENTIA IN OTH DISEASES CLASSD ELSWHR W BEHAVIORAL DISTURB Assessment & Plan Estimated LOS: 5-7 days this time patient does meet [place] criteria I'll do first opinion request second opinion. I also feel patient does not have capacity thus I'll ask for healthcare surrogate and guardian advocate. I did talk with the patient's daughter Rose at [phone] is willing to be health care surrogate. We will adjust her Seroquel at this time and continue observation plan on meeting with family on Saturday about noon to 1:00 Discharge Planning We need to discuss this with family but she returned to her assisted living residential facility with her or if she needs more structure environment Request HC Surrog/Guard Advoc?: Yes Stanford Moody MD Jun 07, 2017 13:44
[2017-06-07] MEDS: QUEtiapine FUMARATE 25 MG TAB PO SCH ×2 (16:48→20:00)
[2017-06-07] MEDS: clonazePAM 0.5 MG TAB PO SCH (21:00)
[2017-06-08 05:56] VITALS: BP 119/72; PULSE 71; RESP 16; TEMP 96.8; O2SAT 97
[2017-06-08] MEDS: LEVOTHYROXINE SODIUM 75 MCG TAB PO SCH (06:00)
[2017-06-08] MEDS: MELOXICAM 15 MG TAB PO SCH (08:31)
[2017-06-08] MEDS: DOCUSATE SODIUM 100 MG CAP PO SCH (09:00)
[2017-06-08 10:35] LABS: ANION GAP 6 MEQ/L (5-15); BICARBONATE 29.9 MEQ/L (21.0-32.0); BLOOD UREA NITROGEN 25 MG/DL (7-18); CHLORIDE 105 MEQ/L (98-107); GLOMERULAR FILTRATION RATE 57 ML/MIN (>89); POTASSIUM 4.1 MEQ/L (3.5-5.1); SODIUM (NA) 141 MEQ/L (136-145)
[2017-06-08 10:37] LABS: HDL CHOLESTEROL 69.7 MG/DL (40.0-60.0); LDL CHOLESTEROL 154 MG/DL (0-99)
[2017-06-08] MEDS: QUEtiapine FUMARATE 25 MG TAB PO SCH ×3 (12:00→21:50)
[2017-06-08 13:01] LABS: HEMOGLOBIN A1b 0.8 %; HEMOGLOBIN Ao 85.9 %; HEMOGLOBIN F 1.2 %; HEMOGLOBIN P3 3.5 %
[2017-06-08 17:55] VITALS: BP 147/80; PULSE 94; RESP 17; TEMP 97.7; O2SAT 97
--- NOTE | 2017-06-08 18:18 | HHI.PYPN ---
Subjective Chief Complaint: patient demented delusional aggressive Remarks Patient was seen and case discussed with nursing. Patient is pleasant and cooperative with exam. Compliant with medications. Patient is very paranoid with a bizarre hallucination that there is a snake in her bed, under the bed, and her clothes. She ran out of the room complaining of this. No other delusions were elicited. Behaving well on the unit per nursing. Mental Status Examination Appearance: Appropriate Consciousness: Alert Orientation: Person (vaguely) Motor Activity: Other (use his walker) Speech: Unremarkable Language: Adequate Fund of Knowledge: Adequate Attention and Concentration: Easily Distracted Memory: Impaired Mood: Anxious, Other (mildly dysphoric) Affect: Other (decreased range and intensity) Thought Process & Associations: Disorganized Thought Content: Bizarre thinking, Hallucinations, Delusional Hallucination Type: Visual (snakes) Delusion Type: Bizarre Suicidal Ideation: No Suicidal Plan: No Suicidal Intention: No Homicidal Ideation: No Homicidal Plan: No Homicidal Intention: No Insight: Poor Judgment: Poor Results Labs Test 06/08/17 09:00 Blood Urea Nitrogen 25 MG/DL Creatinine 0.95 MG/DL Random Glucose 109 MG/DL Calcium Level 8.3 MG/DL Sodium Level 141 MEQ/L Potassium Level 4.1 MEQ/L Chloride Level 105 MEQ/L Carbon Dioxide Level 29.9 MEQ/L Anion Gap 6 MEQ/L Estimat Glomerular Filtration Rate 57 ML/MIN Hemoglobin A1c 5.4 % Triglycerides Level 168 MG/DL Cholesterol Level 257 MG/DL LDL Cholesterol 154 MG/DL HDL Cholesterol 69.7 MG/DL Cholesterol/HDL Ratio 3.68 RATIO Vitals/IOs Vital Signs Date Time Temp Pulse Resp B/P (MAP) Pulse Ox O2 Delivery O2 Flow Rate FiO2 06/08/17 17:55 97.7 94 17 147/80 (102) 97 06/07/17 00:44 Room Air Intake and Output 06/08/17 06/08/17 06/09/17 08:00 16:00 00:00 Intake Total 240 ml 240 ml Balance 240 ml 240 ml Assessment & Plan Problem List: (1) OTHER ALZHEIMER'S DISEASE ICD Codes: G30.8 - OTHER ALZHEIMER'S DISEASE (2) DEMENTIA IN OTH DISEASES CLASSD ELSWHR W BEHAVIORAL DISTURB ICD Codes: F02.81 - DEMENTIA IN OTH DISEASES CLASSD ELSWHR W BEHAVIORAL DISTURB Assessment & Plan Continue current treatment plan Justification for Cont. Inpt. Patient will decompensate in a less restrictive setting Request HC Surrog/Guard Advoc?: Yes Davis Webb DO Jun 08, 2017 18:18
[2017-06-08] MEDS: clonazePAM 0.5 MG TAB PO SCH (21:50)
[2017-06-09 05:35] VITALS: BP 133/76; PULSE 78; RESP 18; TEMP 96.8
[2017-06-09] MEDS: LEVOTHYROXINE SODIUM 75 MCG TAB PO SCH (06:21)
[2017-06-09] MEDS: MELOXICAM 15 MG TAB PO SCH (08:47)
[2017-06-09] MEDS: DOCUSATE SODIUM 100 MG CAP PO SCH (08:47)
[2017-06-09] MEDS: QUEtiapine FUMARATE 25 MG TAB PO SCH ×3 (11:18→20:48)
--- NOTE | 2017-06-09 17:22 | HHI.PYPN ---
Subjective Chief Complaint: patient demented delusional aggressive Remarks This is a request for second opinion. Admission note was reviewed and I agree with the contents. Case was discussed with nursing and patient evaluated today. Patient remains acutely psychotic with visual hallucinations. She is perseverative on a snake which today is inside her body. She is vigilant. Difficult to redirect the conversation about anything her hallucination. Compliant with medications Mental Status Examination Appearance: Appropriate Consciousness: Alert Orientation: Person (vaguely) Motor Activity: Other (use his walker) Speech: Unremarkable Language: Adequate Fund of Knowledge: Adequate Attention and Concentration: Easily Distracted Memory: Impaired Mood: Anxious, Other (mildly dysphoric) Affect: Other (decreased range and intensity) Thought Process & Associations: Disorganized Thought Content: Bizarre thinking, Hallucinations, Delusional Hallucination Type: Visual (snakes) Delusion Type: Bizarre Suicidal Ideation: No Suicidal Plan: No Suicidal Intention: No Homicidal Ideation: No Homicidal Plan: No Homicidal Intention: No Insight: Poor Judgment: Poor Results Vitals/IOs Vital Signs Date Time Temp Pulse Resp B/P (MAP) Pulse Ox O2 Delivery O2 Flow Rate FiO2 06/09/17 05:35 96.8 78 18 133/76 (95) 06/08/17 17:55 97 06/07/17 00:44 Room Air Intake and Output 06/09/17 06/09/17 06/09/17 07:59 15:59 23:59 Intake Total 360 ml Balance 360 ml Assessment & Plan Problem List: (1) OTHER ALZHEIMER'S DISEASE ICD Codes: G30.8 - OTHER ALZHEIMER'S DISEASE (2) DEMENTIA IN OTH DISEASES CLASSD ELSWHR W BEHAVIORAL DISTURB ICD Codes: F02.81 - DEMENTIA IN OTH DISEASES CLASSD ELSWHR W BEHAVIORAL DISTURB Assessment & Plan I agree with the first opinion to continue petition. Criteria include psychosis Justification for Cont. Inpt. Patient would decompensate in a less restrictive setting Request HC Surrog/Guard Advoc?: Yes Davis Webb DO Jun 09, 2017 17:22
[2017-06-09 17:57] VITALS: BP 127/78; PULSE 107; RESP 18; TEMP 97.5; O2SAT 95
[2017-06-09] MEDS: clonazePAM 0.5 MG TAB PO SCH (20:47)
[2017-06-10 00:17] VITALS: BP 117/70
[2017-06-10 05:24] VITALS: BP 138/72; PULSE 68; RESP 16; TEMP 97.9; O2SAT 96
[2017-06-10] MEDS: LEVOTHYROXINE SODIUM 75 MCG TAB PO SCH (06:06)
[2017-06-10] MEDS: MELOXICAM 15 MG TAB PO SCH (08:28)
[2017-06-10] MEDS: DOCUSATE SODIUM 100 MG CAP PO SCH (08:28)
[2017-06-10] MEDS: QUEtiapine FUMARATE 25 MG TAB PO SCH (11:58)
--- NOTE | 2017-06-10 15:48 | HHI.PYPN ---
Subjective Chief Complaint: patient demented delusional aggressive Remarks Met with patient's 2 daughters and her along with counselor Sharon, they shared her history of increased psychosis and delusions. Leading to increased aggressive behaviors. This appears to be on top of dementing process. Patient seen later in the day by me with nurse Eugene continue somewhat confused but feeling people are going to come and pick her up and take her weight today. For now continue treatment. We'll condense the Seroquel to bedtime and offer small dose Respinol Review of Systems Except as stated in HPI: all other systems reviewed are Neg Mental Status Examination Appearance: Appropriate Consciousness: Alert Orientation: Person (vaguely) Motor Activity: Other (use his walker) Speech: Unremarkable Language: Adequate Fund of Knowledge: Adequate Attention and Concentration: Easily Distracted Memory: Impaired Mood: Anxious, Other (mildly dysphoric) Affect: Other (decreased range and intensity) Thought Process & Associations: Disorganized Thought Content: Bizarre thinking, Hallucinations, Delusional Hallucination Type: Visual (snakes) Delusion Type: Bizarre Suicidal Ideation: No Suicidal Plan: No Suicidal Intention: No Homicidal Ideation: No Homicidal Plan: No Homicidal Intention: No Insight: Poor Judgment: Poor Results Vitals/IOs Vital Signs Date Time Temp Pulse Resp B/P (MAP) Pulse Ox O2 Delivery O2 Flow Rate FiO2 06/10/17 05:24 97.9 68 16 138/72 (94) 96 06/07/17 00:44 Room Air Intake and Output 06/10/17 06/10/17 06/11/17 08:00 16:00 00:00 Intake Total 360 ml Balance 360 ml Assessment & Plan Problem List: (1) OTHER ALZHEIMER'S DISEASE ICD Codes: G30.8 - OTHER ALZHEIMER'S DISEASE (2) DEMENTIA IN OTH DISEASES CLASSD ELSWHR W BEHAVIORAL DISTURB ICD Codes: F02.81 - DEMENTIA IN OTH DISEASES CLASSD ELSWHR W BEHAVIORAL DISTURB Assessment & Plan Estimated LOS: days patient demented and psychotic, she medication adjustment above Justification for Cont. Inpt. At this time patient would decompensated placed in a lower level of care Discharge Planning To be determined family to look at more restrictive settings than shelter or supervised living Request HC Surrog/Guard Advoc?: Yes Stanford Moody MD Jun 10, 2017 15:48
--- NOTE | 2017-06-10 16:00 | PD.TTN ---
Patient Problems 1. Discharge planning 2. Medication compliance 3. Knowledge deficit 4. Lack of coping skills Progress Toward Goals Provider Present: Dr. Yana Moody Provider Input: Dr. Moody reported that this is a new patient and we will be meeting with the family today and 1:00 pm. Psychiatric Counselors Present: MAYRA Ribeiro Psych Therapist Input: New patient. Counselor and Dr. Moody will be meeting with the patient's family today at 1:00 pm to discuss treatment plan, medication management, progress, and plan for discharge. Group Spec/RT/OT/BALTAZAR Present: Jacinto Bonilla OT Documentation Scribe: MAYRA Ribeiro Date Resolved: Jun 10, 2017 Sharon Beck Jun 10, 2017 16:00
[2017-06-10] MEDS: risperiDONE 0.5 MG TAB PO SCH (16:34)
[2017-06-10 18:00] VITALS: BP 126/88; PULSE 97; RESP 16; TEMP 97.5; O2SAT 97
[2017-06-10] MEDS: clonazePAM 0.5 MG TAB PO SCH (21:03)
[2017-06-10] MEDS: QUEtiapine FUMARATE 100 MG TAB PO SCH (21:04)
[2017-06-11 05:13] VITALS: BP 130/78; PULSE 82; RESP 18; TEMP 97.8; O2SAT 97
[2017-06-11] MEDS: LEVOTHYROXINE SODIUM 75 MCG TAB PO SCH (05:43)
[2017-06-11] MEDS: MELOXICAM 15 MG TAB PO SCH (08:18)
[2017-06-11] MEDS: DOCUSATE SODIUM 100 MG CAP PO SCH (08:18)
[2017-06-11] MEDS: risperiDONE 0.5 MG TAB PO SCH ×2 (08:18→16:14)
--- NOTE | 2017-06-11 13:18 | HHI.PYPN ---
Subjective Chief Complaint: patient demented delusional aggressive Remarks Patient seen in her room with nurse Eugene and counselor Sharon, patient today states that her flying fish coming from [place] into her window in her bedroom and that by flushing her toilet the fish disappeared. Patient compliant with medications. Showing no insight. Continues to remain diffusely confused. For now continue treatment Review of Systems Except as stated in HPI: all other systems reviewed are Neg Mental Status Examination Appearance: Appropriate Consciousness: Alert Orientation: Person (vaguely) Motor Activity: Other (use his walker) Speech: Unremarkable Language: Adequate Fund of Knowledge: Adequate Attention and Concentration: Easily Distracted Memory: Impaired Mood: Anxious, Other (mildly dysphoric) Affect: Other (decreased range and intensity) Thought Process & Associations: Disorganized Thought Content: Bizarre thinking, Hallucinations, Delusional Hallucination Type: Visual (snakes) Delusion Type: Bizarre Suicidal Ideation: No Suicidal Plan: No Suicidal Intention: No Homicidal Ideation: No Homicidal Plan: No Homicidal Intention: No Insight: Poor Judgment: Poor Results Vitals/IOs Vital Signs Date Time Temp Pulse Resp B/P (MAP) Pulse Ox O2 Delivery O2 Flow Rate FiO2 06/11/17 05:13 97.8 82 18 130/78 (95) 97 Intake and Output 06/11/17 06/11/17 06/12/17 08:00 16:00 00:00 Intake Total 2 ml Balance 2 ml Assessment & Plan Problem List: (1) OTHER ALZHEIMER'S DISEASE ICD Codes: G30.8 - OTHER ALZHEIMER'S DISEASE (2) DEMENTIA IN OTH DISEASES CLASSD ELSWHR W BEHAVIORAL DISTURB ICD Codes: F02.81 - DEMENTIA IN OTH DISEASES CLASSD ELSWHR W BEHAVIORAL DISTURB Assessment & Plan Estimated LOS: days patient is confused demented and psychotic. Compliant medications. For now continue treatment Justification for Cont. Inpt. At this time patient will decompensate the placed in a lower level of care Discharge Planning Placement may become somewhat problematic for this lady Request HC Surrog/Guard Advoc?: Yes Stanford Moody MD Jun 11, 2017 13:18
[2017-06-11 17:54] VITALS: BP 128/82; PULSE 109; RESP 18; TEMP 97.4; O2SAT 98
[2017-06-11] MEDS: clonazePAM 0.5 MG TAB PO SCH (20:13)
[2017-06-11] MEDS: QUEtiapine FUMARATE 100 MG TAB PO SCH (20:13)
[2017-06-12 05:51] VITALS: BP 118/62; PULSE 113; RESP 16; TEMP 97.8; O2SAT 96
[2017-06-12] MEDS: LEVOTHYROXINE SODIUM 75 MCG TAB PO SCH (06:11)
[2017-06-12] MEDS: DOCUSATE SODIUM 100 MG CAP PO SCH (08:06)
[2017-06-12] MEDS: MELOXICAM 15 MG TAB PO SCH (08:08)
[2017-06-12] MEDS: risperiDONE 0.5 MG TAB PO SCH ×2 (08:08→16:00)
--- NOTE | 2017-06-12 11:33 | HHI.PYPN ---
Subjective Chief Complaint: patient demented delusional aggressive Remarks Patient seen in her room with nurse Mally, patient calm cooperative, chart reviewed patient compliant medications. However patient today states while rubbing her stomach that there are "worms in my stomach" that her up with it by a "man with big head does it" and that he does it because "doesn't like me" will increase scheduled Respinol to 1 mg twice a day Review of Systems Except as stated in HPI: all other systems reviewed are Neg Mental Status Examination Appearance: Appropriate Consciousness: Alert Orientation: Person (vaguely) Motor Activity: Other (use his walker) Speech: Unremarkable Language: Adequate Fund of Knowledge: Adequate Attention and Concentration: Easily Distracted Memory: Impaired Mood: Anxious, Other (mildly dysphoric) Affect: Other (decreased range and intensity) Thought Process & Associations: Disorganized Thought Content: Bizarre thinking, Hallucinations, Delusional Hallucination Type: Visual (snakes), Tactile (perhaps some tactile related to "worms in my stomach") Delusion Type: Bizarre Suicidal Ideation: No Suicidal Plan: No Suicidal Intention: No Homicidal Ideation: No Homicidal Plan: No Homicidal Intention: No Insight: Poor Judgment: Poor Results Vitals/IOs Vital Signs Date Time Temp Pulse Resp B/P (MAP) Pulse Ox O2 Delivery O2 Flow Rate FiO2 06/12/17 05:51 97.8 113 16 118/62 (80) 96 Intake and Output 06/12/17 06/12/17 06/13/17 08:00 16:00 00:00 Intake Total 240 ml Balance 240 ml Assessment & Plan Problem List: (1) OTHER ALZHEIMER'S DISEASE ICD Codes: G30.8 - OTHER ALZHEIMER'S DISEASE (2) DEMENTIA IN OTH DISEASES CLASSD ELSWHR W BEHAVIORAL DISTURB ICD Codes: F02.81 - 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 Will increase Respinol to 1 mg twice a day Justification for Cont. Inpt. At this time patient will decompensate if placed on lower level of care Discharge Planning Place at this time remains problematic Request HC Surrog/Guard Advoc?: Yes Stanford Mooyd MD Jun 12, 2017 11:33
--- NOTE | 2017-06-12 11:40 | PD.TTN ---
Patient Problems 1. Discharge planning 2. Medication compliance 3. Knowledge deficit 4. Lack of coping skills Progress Toward Goals Provider Present: Dr. Yana Moody Provider Input: 06/12/17; Patient is stable on current medication, however she needs to be watch for improvement Dr. Moody reported that this is a new patient and we will be meeting with the family today and 1:00 pm. Nurse(s) Present: Mally JONES Nurse(s) Input: 06/12/17; patient is eating meals, and taking medication, somewhat delusional content and paranoid behavior Psych Therapist Input: 06/12/2017 Patient will be assess for needed level of outpatient service/care New patient. Counselor and Dr. Moody will be meeting with the patient's family today at 1:00 pm to discuss treatment plan, medication management, progress, and plan for discharge. Group Spec/RT/OT/BALTAZAR Present: DELANEY Valdovinos Group Spec/RT/OT/BALTAZAR Input: Patient attend some groups Documentation Scribe: KACY Krishna Date Resolved: Jun 10, 2017 Rivka Saavedra Jun 12, 2017 11:40
[2017-06-12 18:00] VITALS: BP 123/79; PULSE 104; RESP 20; TEMP 97.3; O2SAT 94
[2017-06-12] MEDS: clonazePAM 0.5 MG TAB PO SCH (20:48)
[2017-06-12] MEDS: QUEtiapine FUMARATE 100 MG TAB PO SCH (20:48)
[2017-06-13] MEDS: LEVOTHYROXINE SODIUM 75 MCG TAB PO SCH (06:10)
[2017-06-13 06:12] VITALS: BP 126/59; PULSE 98; RESP 17; TEMP 97.6; O2SAT 96
[2017-06-13] MEDS: risperiDONE 0.5 MG TAB PO SCH ×2 (08:00→16:00)
[2017-06-13] MEDS: MELOXICAM 15 MG TAB PO SCH (09:00)
[2017-06-13] MEDS: DOCUSATE SODIUM 100 MG CAP PO SCH (09:00)
--- NOTE | 2017-06-13 10:17 | HHI.PYPN ---
Subjective Chief Complaint: patient demented delusional aggressive Remarks Patient seen in room with nurse Mally, patient had staff lower shades over the window yesterday because she felt worse makes outside the window. Today patient states that she is with at least 6 children. Patient showing no insight into these delusions. She is compliant with her medications or just adjusted yesterday. For now continue treatment patient scheduled for [place] [facility] today Review of Systems Except as stated in HPI: all other systems reviewed are Neg Mental Status Examination Appearance: Appropriate Consciousness: Alert Orientation: Person (vaguely) Motor Activity: Other (use his walker) Speech: Unremarkable Language: Adequate Fund of Knowledge: Adequate Attention and Concentration: Easily Distracted Memory: Impaired Mood: Anxious, Other (mildly dysphoric) Affect: Other (decreased range and intensity) Thought Process & Associations: Disorganized Thought Content: Bizarre thinking, Hallucinations, Delusional Hallucination Type: Visual (snakes), Tactile (perhaps some tactile related to "worms in my stomach") Delusion Type: Bizarre Suicidal Ideation: No Suicidal Plan: No Suicidal Intention: No Homicidal Ideation: No Homicidal Plan: No Homicidal Intention: No Insight: Poor Judgment: Poor Results Vitals/IOs Vital Signs Date Time Temp Pulse Resp B/P (MAP) Pulse Ox O2 Delivery O2 Flow Rate FiO2 06/13/17 06:12 97.6 98 17 126/59 (81) 96 Intake and Output 06/13/17 06/13/17 06/14/17 08:00 16:00 00:00 Intake Total 240 ml 480 ml Balance 240 ml 480 ml Assessment & Plan Problem List: (1) OTHER ALZHEIMER'S DISEASE ICD Codes: G30.8 - OTHER ALZHEIMER'S DISEASE (2) DEMENTIA IN OTH DISEASES CLASSD ELSWHR W BEHAVIORAL DISTURB ICD Codes: F02.81 - 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 For now continue treatment Justification for Cont. Inpt. At this time patient will decompensate the placed in a lower level of care Discharge Planning Placement pending perhaps in conjunction with her and a higher level of care Request HC Surrog/Guard Advoc?: Yes Stanford Moody MD Jun 13, 2017 10:16
[2017-06-13 18:16] VITALS: BP 136/72; PULSE 123; RESP 17; TEMP 97.5; O2SAT 97
[2017-06-13] MEDS: QUEtiapine FUMARATE 100 MG TAB PO SCH (20:46)
[2017-06-13] MEDS: clonazePAM 0.5 MG TAB PO SCH (20:46)
[2017-06-14 05:59] VITALS: BP 82/50; PULSE 77; RESP 15; TEMP 98; O2SAT 92
[2017-06-14] MEDS: LEVOTHYROXINE SODIUM 75 MCG TAB PO SCH (06:13)
[2017-06-14] MEDS: MELOXICAM 15 MG TAB PO SCH (08:57)
[2017-06-14] MEDS: risperiDONE 0.5 MG TAB PO SCH (08:57)
[2017-06-14] MEDS: DOCUSATE SODIUM 100 MG CAP PO SCH (08:57)
--- NOTE | 2017-06-14 15:15 | HHI.PYPN ---
Subjective Chief Complaint: patient demented delusional aggressive Remarks Patient seen in her room with nurse Michael, patient laying very flat very still the hands at her side in her bed. She does make eye contact with me but her responses are delayed and whisper. When asked about her somatic complaints she shakes her head but then when I ask her about the "worms" are "baby's" she becomes somewhat anxious with a sad look on her face. We will increase patient' s Respinol to 1 mg a.m. 2 mg 4 PM Review of Systems Except as stated in HPI: all other systems reviewed are Neg Mental Status Examination Appearance: Appropriate Consciousness: Alert Orientation: Person (vaguely) Motor Activity: Other (use his walker) Speech: Unremarkable Language: Adequate Fund of Knowledge: Adequate Attention and Concentration: Easily Distracted Memory: Impaired Mood: Anxious, Other (mildly dysphoric) Affect: Other (decreased range and intensity) Thought Process & Associations: Disorganized Thought Content: Bizarre thinking, Hallucinations, Delusional Hallucination Type: Visual (snakes), Tactile (perhaps some tactile related to "worms in my stomach") Delusion Type: Bizarre Suicidal Ideation: No Suicidal Plan: No Suicidal Intention: No Homicidal Ideation: No Homicidal Plan: No Homicidal Intention: No Insight: Poor Judgment: Poor Results Vitals/IOs Vital Signs Date Time Temp Pulse Resp B/P (MAP) Pulse Ox O2 Delivery O2 Flow Rate FiO2 06/14/17 05:59 98.0 77 15 82/50 (61) 92 Intake and Output 06/14/17 06/14/17 06/15/17 08:00 16:00 00:00 Intake Total 0 ml 840 ml Balance 0 ml 840 ml Assessment & Plan Problem List: (1) OTHER ALZHEIMER'S DISEASE ICD Codes: G30.8 - OTHER ALZHEIMER'S DISEASE (2) DEMENTIA IN OTH DISEASES CLASSD ELSWHR W BEHAVIORAL DISTURB ICD Codes: F02.81 - 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 See medication adjustment above Justification for Cont. Inpt. At this time patient would decompensate and placed in the lower level of care Discharge Planning Hopefully Will return home with family Request HC Surrog/Guard Advoc?: Yes Stanford Moody MD Jun 14, 2017 15:15
[2017-06-14] MEDS: risperiDONE 1 MG TAB PO SCH (16:59)
[2017-06-14 17:47] VITALS: BP 156/93; PULSE 104; RESP 16; TEMP 97.3; O2SAT 95
[2017-06-14] MEDS: clonazePAM 0.5 MG TAB PO SCH (21:16)
[2017-06-14] MEDS: QUEtiapine FUMARATE 100 MG TAB PO SCH (21:16)
[2017-06-14] MEDS: hydrOXYzine HCL 50 MG TAB PO PRN (23:43)
[2017-06-15 05:37] VITALS: BP 141/74; PULSE 86; RESP 17; TEMP 97.9; O2SAT 94
[2017-06-15] MEDS: LEVOTHYROXINE SODIUM 75 MCG TAB PO SCH (06:10)
[2017-06-15] MEDS: DOCUSATE SODIUM 100 MG CAP PO SCH (08:09)
[2017-06-15] MEDS: risperiDONE 0.5 MG TAB PO SCH (08:09)
[2017-06-15] MEDS: MELOXICAM 15 MG TAB PO SCH (08:09)
[2017-06-15] MEDS: risperiDONE 1 MG TAB PO SCH (15:40)
[2017-06-15 18:00] VITALS: BP 132/89; PULSE 97; RESP 17; TEMP 97.4; O2SAT 97
--- NOTE | 2017-06-15 18:28 | HHI.PYPN ---
Subjective Chief Complaint: patient demented delusional aggressive Remarks patient was seen and case discussed with nursing. Pt told nursing she felt nauseous but later denied it with me. She felt dizzy which has resolved. Appears anxious, BP slightly elevated. No psychotic symptoms elicited today Mental Status Examination Appearance: Appropriate Consciousness: Alert Orientation: Person (vaguely) Motor Activity: Other (use his walker) Speech: Unremarkable Language: Adequate Fund of Knowledge: Adequate Attention and Concentration: Easily Distracted Memory: Impaired Mood: Anxious, Other (mildly dysphoric) Affect: Anxious Thought Process & Associations: Disorganized Thought Content: Bizarre thinking, Delusional Hallucination Type: Tactile (perhaps some tactile related to "worms in my stomach") Delusion Type: Bizarre Suicidal Ideation: No Suicidal Plan: No Suicidal Intention: No Homicidal Ideation: No Homicidal Plan: No Homicidal Intention: No Insight: Poor Judgment: Poor Results Vitals/IOs Vital Signs Date Time Temp Pulse Resp B/P (MAP) Pulse Ox O2 Delivery O2 Flow Rate FiO2 06/15/17 18:00 97.4 97 17 132/89 (103) 97 Intake and Output 06/15/17 06/15/17 06/16/17 08:00 16:00 00:00 Intake Total 480 ml 240 ml 720 ml Balance 480 ml 240 ml 720 ml Assessment & Plan Problem List: (1) OTHER ALZHEIMER'S DISEASE ICD Codes: G30.8 - OTHER ALZHEIMER'S DISEASE (2) DEMENTIA IN OTH DISEASES CLASSD ELSWHR W BEHAVIORAL DISTURB ICD Codes: F02.81 - 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 Will hold antipsychotics if dizziness returns Justification for Cont. Inpt. Patient would decompensate in a less restrictive setting Request HC Surrog/Guard Advoc?: Yes Davis Webb DO Jun 15, 2017 18:28
[2017-06-15 18:30] VITALS: BP_SYST 110; BP_SYST 115; BP_DIAS 72; BP_DIAS 75; PULSE 113
[2017-06-15] MEDS: clonazePAM 0.5 MG TAB PO SCH (20:36)
[2017-06-15] MEDS: QUEtiapine FUMARATE 100 MG TAB PO SCH (20:36)
[2017-06-16] VITALS: BP 150/79; PULSE 100; RESP 18; TEMP 98.7; O2SAT 96
[2017-06-16] MEDS: LEVOTHYROXINE SODIUM 75 MCG TAB PO SCH (05:56)
[2017-06-16 06:01] VITALS: BP 134/78; PULSE 109; RESP 17; TEMP 97.4; O2SAT 96
[2017-06-16] MEDS: risperiDONE 0.5 MG TAB PO SCH (07:39)
[2017-06-16] MEDS: DOCUSATE SODIUM 100 MG CAP PO SCH (07:39)
[2017-06-16] MEDS: MELOXICAM 15 MG TAB PO SCH (07:39)
[2017-06-16] MEDS: hydrOXYzine HCL 50 MG TAB PO PRN (10:45)
[2017-06-16 12:09] VITALS: BP 135/58; PULSE 119; RESP 18; TEMP 97.2; O2SAT 97
--- NOTE | 2017-06-16 13:58 | HHI.PYPN ---
Subjective Chief Complaint: patient demented delusional aggressive Remarks Pt was seen and case discussed with nursing. Per nursing, pt is quite vigilant throughout the day. She is confused, oriented x1. Denies any VH or bizarre delusions today. per nursing only slept a couple hours. Mental Status Examination Appearance: Appropriate Consciousness: Alert Orientation: Person (vaguely) Motor Activity: Other (use his walker) Speech: Unremarkable Language: Adequate Fund of Knowledge: Adequate Attention and Concentration: Easily Distracted Memory: Impaired Mood: Anxious, Other (mildly dysphoric) Affect: Anxious Thought Process & Associations: Disorganized Thought Content: Bizarre thinking Hallucination Type: Tactile (perhaps some tactile related to "worms in my stomach") Delusion Type: Bizarre Suicidal Ideation: No Suicidal Plan: No Suicidal Intention: No Homicidal Ideation: No Homicidal Plan: No Homicidal Intention: No Insight: Poor Judgment: Poor Results Vitals/IOs Vital Signs Date Time Temp Pulse Resp B/P (MAP) Pulse Ox O2 Delivery O2 Flow Rate FiO2 06/16/17 12:09 97.2 119 18 135/58 (83) 97 Intake and Output 06/16/17 06/16/17 06/17/17 08:00 16:00 00:00 Intake Total 240 ml 0 ml Balance 240 ml 0 ml Assessment & Plan Problem List: (1) OTHER ALZHEIMER'S DISEASE ICD Codes: G30.8 - OTHER ALZHEIMER'S DISEASE (2) DEMENTIA IN OTH DISEASES CLASSD ELSWHR W BEHAVIORAL DISTURB ICD Codes: F02.81 - 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 Inpt. Patient would decompensate in a less restrictive setting. Request HC Surrog/Guard Advoc?: Yes Davis Webb DO Jun 16, 2017 13:58
[2017-06-16] MEDS: risperiDONE 1 MG TAB PO SCH (15:51)
[2017-06-16 18:00] VITALS: BP 128/81; PULSE 118; RESP 18; TEMP 98.2; O2SAT 95
[2017-06-16] MEDS: QUEtiapine FUMARATE 100 MG TAB PO SCH (20:25)
[2017-06-16] MEDS: clonazePAM 0.5 MG TAB PO SCH (20:25)
[2017-06-16 23:59] VITALS: BP 116/75; PULSE 90; RESP 16; TEMP 98; O2SAT 95
[2017-06-17] MEDS: LEVOTHYROXINE SODIUM 75 MCG TAB PO SCH (06:04)
[2017-06-17 06:19] VITALS: BP 148/69; PULSE 78; RESP 17; TEMP 97.3; O2SAT 97
[2017-06-17] MEDS: MELOXICAM 15 MG TAB PO SCH (08:14)
[2017-06-17] MEDS: risperiDONE 0.5 MG TAB PO SCH (08:14)
[2017-06-17] MEDS: DOCUSATE SODIUM 100 MG CAP PO SCH (08:14)
--- NOTE | 2017-06-17 09:42 | PD.TTN ---
Patient Problems 1. Discharge planning 2. Medication compliance 3. Knowledge deficit 4. Lack of coping skills Progress Toward Goals Provider Present: Dr. Yana Moody Provider Input: 06/17/2018; medication adjustment to assist with sleep, and delusions; 06/12/17; Patient is stable on current medication, however she needs to be watch for improvement Dr. Moody reported that this is a new patient and we will be meeting with the family today and 1:00 pm. Nurse(s) Present: Rajwinder RN Nurse(s) Input: 06/17/2017; Patient's delusion has soften, she is less anxious, however patient display confused and disorganized behavior at times 06/12/17; patient is eating meals, and taking medication, somewhat delusional content and paranoid behavior Psychiatric Counselors Present: KACY Krishna Psych Therapist Input: 06/17/2017; counselor will provide family with a list of NH for [facility]. 06/12/2017 Patient will be assess for needed level of outpatient service/care New patient. Counselor and Dr. Moody will be meeting with the patient's family today at 1:00 pm to discuss treatment plan, medication management, progress, and plan for discharge. Group Spec/RT/OT/BALTAZAR Present: DELANEY Valdovinos Group Spec/RT/OT/BALTAZAR Input: 06/17/2017; patient has been unable to attend groups or activities Patient attend some groups Documentation Scribe: KACY Krishna Date Resolved: Jun 10, 2017 Rivka Saavedra Jun 17, 2017 09:42
--- NOTE | 2017-06-17 10:16 | HHI.PYPN ---
Subjective Chief Complaint: patient demented delusional aggressive Remarks Patient seen in her room with nurse judith macias chart review, patient compliant medication. Patient sitting on the edge of her bed quite still staring at the floor. Her responses are slow and delayed. There is no eye contact. Today she denies having snakes in her belly with says that she has 13 children some still little insight her. She continues markedly disorganized oriented only to self. I later met with patient's daughter son-in-law and grandson. We discussed patient's diagnosis behaviors treatment and goals. Also counseled them is to the need to keep their expectations are reasonable. They feel the patient's psychotic behaviors related to her delusions is getting better. They see less paranoia. The confusion persists. Appears they have excellent services arranged through [facility] including nurses checking on her mother and stepfather every 2 hours through the day and night. For now will monitor medications. Patient continues to show improvement consider discharge in 24-48 hours Review of Systems Except as stated in HPI: all other systems reviewed are Neg Mental Status Examination Appearance: Appropriate Consciousness: Alert Orientation: Person (vaguely) Motor Activity: Other (use his walker) Speech: Unremarkable Language: Adequate Fund of Knowledge: Adequate Attention and Concentration: Easily Distracted Memory: Impaired Mood: Anxious, Other (mildly dysphoric) Affect: Anxious Thought Process & Associations: Disorganized Thought Content: Bizarre thinking Hallucination Type: Tactile (perhaps some tactile related to "worms in my stomach") Delusion Type: Bizarre Suicidal Ideation: No Suicidal Plan: No Suicidal Intention: No Homicidal Ideation: No Homicidal Plan: No Homicidal Intention: No Insight: Poor Judgment: Poor Results Vitals/IOs Vital Signs Date Time Temp Pulse Resp B/P (MAP) Pulse Ox O2 Delivery O2 Flow Rate FiO2 06/17/17 06:19 97.3 78 17 148/69 (95) 97 Intake and Output 06/17/17 06/17/17 06/18/17 08:00 16:00 00:00 Intake Total 120 ml Balance 120 ml Assessment & Plan Problem List: (1) OTHER ALZHEIMER'S DISEASE ICD Codes: G30.8 - OTHER ALZHEIMER'S DISEASE (2) DEMENTIA IN OTH DISEASES CLASSD ELSWHR W BEHAVIORAL DISTURB ICD Codes: F02.81 - DEMENTIA IN OTH DISEASES CLASSD ELSWHR W BEHAVIORAL DISTURB Assessment & Plan Estimated LOS: days patient's dementia persist with her confusion and orientation to self only. The delusions have softened. There isparanoia related to this. For now continue treatment Justification for Cont. Inpt. At this time patient will decompensate placed in the lower level of care Discharge Planning [facility] to [facility] placement [facility] with her Request HC Surrog/Guard Advoc?: Yes Stanford Moody MD Jun 17, 2017 10:16
[2017-06-17] MEDS: risperiDONE 1 MG TAB PO SCH (16:00)
[2017-06-17 18:03] VITALS: BP 124/80; PULSE 95; RESP 16; TEMP 97.9; O2SAT 95
[2017-06-17] MEDS: QUEtiapine FUMARATE 100 MG TAB PO SCH (20:54)
[2017-06-17] MEDS: clonazePAM 0.5 MG TAB PO SCH (20:54)
[2017-06-18] MEDS: LEVOTHYROXINE SODIUM 75 MCG TAB PO SCH (05:38)
[2017-06-18 05:47] VITALS: BP 132/75; PULSE 82; RESP 16; TEMP 97.4; O2SAT 95
--- NOTE | 2017-06-18 09:17 | HHI.PYPN ---
Subjective Chief Complaint: patient demented delusional aggressive Remarks Patient seen in her room with floor staff, chart review, patient compliant medication. Patient calm pleasant with me, continues diffusely confused and disoriented. However Victorino denies having any Wormser snakes in her abdomen. Denies having any babies in her abdomen. Also now states she doesn't believe there are children in her neighbors apartment that she needs to rescue Review of Systems Except as stated in HPI: all other systems reviewed are Neg Mental Status Examination Appearance: Appropriate Consciousness: Alert Orientation: Person (vaguely) Motor Activity: Other (use his walker) Speech: Unremarkable Language: Adequate Fund of Knowledge: Adequate Attention and Concentration: Easily Distracted Memory: Impaired Mood: Anxious, Other (mildly dysphoric) Affect: Anxious Thought Process & Associations: Disorganized Thought Content: Bizarre thinking Hallucination Type: Tactile (denies today) Delusion Type: Bizarre (denies today) Suicidal Ideation: No Suicidal Plan: No Suicidal Intention: No Homicidal Ideation: No Homicidal Plan: No Homicidal Intention: No Insight: Poor Judgment: Poor Results Vitals/IOs Vital Signs Date Time Temp Pulse Resp B/P (MAP) Pulse Ox O2 Delivery O2 Flow Rate FiO2 06/18/17 05:47 97.4 82 16 132/75 (94) 95 Intake and Output 06/18/17 06/18/17 06/19/17 08:00 16:00 00:00 Intake Total 0 ml 240 ml Balance 0 ml 240 ml Assessment & Plan Problem List: (1) OTHER ALZHEIMER'S DISEASE ICD Codes: G30.8 - OTHER ALZHEIMER'S DISEASE (2) DEMENTIA IN OTH DISEASES CLASSD ELSWHR W BEHAVIORAL DISTURB ICD Codes: F02.81 - DEMENTIA IN OTH DISEASES CLASSD ELSWHR W BEHAVIORAL DISTURB Assessment & Plan Estimated LOS: days patient's dementia continues unchanged, though she is no behavior problems today. Some of her delusional ideation appears to be resolving. Justification for Cont. Inpt. At this time patient will decompensate if placed on the lower level of care Discharge Planning Hopefully to return to reunite with her perhaps a higher level of care Request HC Surrog/Guard Advoc?: Yes Stanford Moody MD Jun 18, 2017 09:17
[2017-06-18] MEDS: risperiDONE 0.5 MG TAB PO SCH (10:06)
[2017-06-18] MEDS: DOCUSATE SODIUM 100 MG CAP PO SCH (10:06)
[2017-06-18] MEDS: MELOXICAM 15 MG TAB PO SCH (10:06)
[2017-06-18] MEDS: risperiDONE 1 MG TAB PO SCH (15:34)
[2017-06-18 18:07] VITALS: BP 149/93; PULSE 115; RESP 16; TEMP 97.8; O2SAT 96
[2017-06-18] MEDS: QUEtiapine FUMARATE 100 MG TAB PO SCH (20:41)
[2017-06-18] MEDS: clonazePAM 0.5 MG TAB PO SCH (20:41)
[2017-06-19 05:11] VITALS: BP 128/74; PULSE 77; RESP 16; TEMP 97.5; O2SAT 96
[2017-06-19] MEDS: LEVOTHYROXINE SODIUM 75 MCG TAB PO SCH (05:18)
[2017-06-19] MEDS: DOCUSATE SODIUM 100 MG CAP PO SCH ×3 (08:32→08:45)
[2017-06-19] MEDS: risperiDONE 0.5 MG TAB PO SCH (08:33)
[2017-06-19] MEDS: MELOXICAM 15 MG TAB PO SCH (08:33)
--- NOTE | 2017-06-19 10:18 | HHI.PYPN ---
Subjective Chief Complaint: patient demented delusional aggressive Remarks Patient seen in her room on the floor staff, chart reviewed, patient compliant medications. Patient continues diffusely confused though her delusions have markedly decreased. She now denies having snakes or worms in her belly. She denies having babies and her belly, she also denies believing there are children and neighbors Apartments that she needs to rescue. Counselor has talked with patient's family it appears they feel patient has improved appointment with wish to have her discharged to return to her family. Will plan to discharge patient tomorrow to the family to follow-up with the medical services through [facility] Review of Systems Except as stated in HPI: all other systems reviewed are Neg Mental Status Examination Appearance: Appropriate Consciousness: Alert Orientation: Person (vaguely) Motor Activity: Other (use his walker) Speech: Unremarkable Language: Adequate Fund of Knowledge: Adequate Attention and Concentration: Easily Distracted Memory: Impaired Mood: Anxious, Other (mildly dysphoric) Affect: Anxious Thought Process & Associations: Disorganized Thought Content: Bizarre thinking Hallucination Type: Tactile (denies today) Delusion Type: Bizarre (denies today) Suicidal Ideation: No Suicidal Plan: No Suicidal Intention: No Homicidal Ideation: No Homicidal Plan: No Homicidal Intention: No Insight: Poor Judgment: Poor Results Vitals/IOs Vital Signs Date Time Temp Pulse Resp B/P (MAP) Pulse Ox O2 Delivery O2 Flow Rate FiO2 06/19/17 05:11 97.5 77 16 128/74 (92) 96 Assessment & Plan Problem List: (1) OTHER ALZHEIMER'S DISEASE ICD Codes: G30.8 - OTHER ALZHEIMER'S DISEASE (2) DEMENTIA IN OTH DISEASES CLASSD ELSWHR W BEHAVIORAL DISTURB ICD Codes: F02.81 - DEMENTIA IN OTH DISEASES CLASSD ELSWHR W BEHAVIORAL DISTURB Assessment & Plan Estimated LOS: days well patient's dementia and confusion persists her delusions have markedly diminished. Consider discharge tomorrow to family with follow-up through mental health services at [facility]. Justification for Cont. Inpt. Plan to discharge patient to family tomorrow Discharge Planning Plan to discharge patient to family tomorrow with follow-up through [facility] Request HC Surrog/Guard Advoc?: Yes Stanford Moody MD Jun 19, 2017 10:18
--- NOTE | 2017-06-19 14:23 | PD.TTN ---
Patient Problems 1. Discharge planning 2. Medication compliance 3. Knowledge deficit 4. Lack of coping skills Progress Toward Goals Provider Present: Dr. Yana Moody Provider Input: 06/19/2017; Per doctor; patient is less delusional, remain confused; possible dc 06/20/2017 06/17/2018; medication adjustment to assist with sleep, and delusions; 06/12/17; Patient is stable on current medication, however she needs to be watch for improvement Dr. Moody reported that this is a new patient and we will be meeting with the family today and 1:00 pm. Nurse(s) Present: ROBERT Rodriguez Nurse(s) Input: 06/19/2017; patient is med and meals compliant, no behavior issues 06/17/2017; Patient's delusion has soften, she is less anxious, however patient display confused and disorganized behavior at times 06/12/17; patient is eating meals, and taking medication, somewhat delusional content and paranoid behavior Psychiatric Counselors Present: KACY Krishna Psych Therapist Input: 06/19/20; counselor will complete 1823, and contact facility to complete a face to face 06/17/2017; counselor will provide family with a list of NH for future placement and [facility] for dc assistance. 06/12/2017 Patient will be assess for needed level of outpatient service/care New patient. Counselor and Dr. Moody will be meeting with the patient's family today at 1:00 pm to discuss treatment plan, medication management, progress, and plan for discharge. Group Spec/RT/OT/BALTAZAR Present: DELANEY Valdovinos Group Spec/RT/OT/BALTAZAR Input: 06/19/2017; does not attend groups 06/17/2017; patient has been unable to attend groups or activities Patient attend some groups Documentation Scribe: KACY Krishna Date Resolved: Jun 10, 2017 Rivka Saavedra Jun 19, 2017 14:23
[2017-06-19] MEDS: risperiDONE 1 MG TAB PO SCH (16:41)
[2017-06-19 18:33] VITALS: BP 164/92; PULSE 111; RESP 20; TEMP 97.4; O2SAT 94
[2017-06-19] MEDS: clonazePAM 0.5 MG TAB PO SCH (21:50)
[2017-06-19] MEDS: QUEtiapine FUMARATE 100 MG TAB PO SCH (21:50)
[2017-06-20] MEDS: LEVOTHYROXINE SODIUM 75 MCG TAB PO SCH (06:07)
[2017-06-20 06:11] VITALS: BP 136/75; PULSE 80; RESP 17; TEMP 97.9; O2SAT 96
[2017-06-20] MEDS: DOCUSATE SODIUM 100 MG CAP PO SCH (08:47)
[2017-06-20] MEDS: MELOXICAM 15 MG TAB PO SCH (08:47)
[2017-06-20] MEDS: risperiDONE 0.5 MG TAB PO SCH (08:47)
[2017-06-20] MEDS ORDERED: LEVO.075 PO (11:14)
[2017-06-20] MEDS ORDERED: CLON0.5T PO (11:14)
[2017-06-20] MEDS ORDERED: QUET1TAB8 PO (11:14)
[2017-06-20] MEDS ORDERED: RISP1 PO (11:14)
[2017-06-20] MEDS ORDERED: MELO15TA20 PO (11:14)
[2017-06-20] MEDS ORDERED: DOCU100C15 PO (11:14)
--- NOTE | 2017-06-20 11:19 | HHI.DS ---
Psychiatry Discharge Summary Inpatient Psychiatric care?: Yes Advance Directive: No Reason Not Provided: pateint declined Mental Health AdvanceDirective: No Health Care Proxy: No (patient declined) Admission Admission Date Jun 07, 2017 at 00:54 Admission Diagnosis: (1) OTHER ALZHEIMER'S DISEASE ICD Code: G30.8 - OTHER ALZHEIMER'S DISEASE (2) DEMENTIA IN OTH DISEASES CLASSD ELSWHR W BEHAVIORAL DISTURB ICD Code: F02.81 - DEMENTIA IN OTH DISEASES CLASSD ELSWHR W BEHAVIORAL DISTURB Brief History Patient is a 76-year-old white female who comes here under [employer] act signed been illegible signature dated 06/07/17 at 002 2 PM that document reviewed stating actively hallucinating and delusional. Patient seen screened in the ED urine toxicology positive for benzodiazepines. It appears the patient is living in an residential facility with her second of 30+ years believes that she has multiple children they've been held and the apartment next to hers was pounding on the door becoming very threatening delusional and aggressive situation. Was bar-to-bar ED showed similar behaviors in the ED necessitating an ETO. At the present time patient sitting quietly in her room on 2600. She is calm quite pleasant with me but oriented only to self. When asked about her "children" she became quite ambiguous saying she has 8 or 10 children but unable to give any further details. She denies any prior psychiatric contact hospitalization psychotropic medication. Though she has been seen in consultation here in September 2015 diagnosis of dementia at that time I will also call the patient's daughter Rose at [phone] verifies the history of dementia, and these behavioral disturbances. It appears they have attempted to titrate Seroquel to help her behaviors but is not been very successful. Daughter verifies the no past psychiatric history prior to the diagnosis of dementia. Daughter also states they have been a social drinker in the past. But denies other drug use. At this time patient does meet criteria for involuntary psychiatric hospitalization the [place] act. Also for she does not have capacity thus I'll ask for healthcare surrogate and guarded advocate. We will chest with patient the 2500 unit we will adjust the patient's Seroquel to 50 mg noon and 4 PM and 8 PM. We'll discontinue her Ativan and allow the small dose of Klonopin at at bedtime. We'll meet with the patient's daughter around noon on Sunday 06/10. We did need to discuss placement issues Tobacco Use In Past 30 Days: No Tobacco Past 30 Days Alcohol Use: Never Hospital Course Patient's hospital course was essentially uneventful. The delusions related to warm/legs and abdomen slowly resolved, the sensation of having multiple papers in her belly slowly resolve. In the feeling of need to help babies in the next apartment slowly resolved. Her cognitive deficits remain the confusion related to her dementia remained. She was no behavioral problems. And show compliance with her medications. If this tends a bed available at [facility] for this lady. She has met maximum benefit of this hospitalization thus will be discharged to that facility today with Rx 1 month follow-up mental health services through that facility Results Blood Pressure 136 / 75 Vital Signs Date Time Temp Pulse Resp B/P (MAP) Pulse Ox O2 Delivery O2 Flow Rate FiO2 06/20/17 06:11 97.9 80 17 136/75 (95) 96 Laboratory Results Test 06/08/17 09:00 Cholesterol Level 257 MG/DL (120-200) HDL Cholesterol 69.7 MG/DL (40.0-60.0) Hemoglobin A1c 5.4 % (4.3-6.0) LDL Cholesterol 154 MG/DL (0-99) Triglycerides Level 168 MG/DL (42-150) Summary of Procedures None done Imaging Last Impressions Head CT 06/06/17 0000 Signed Impressions: Service Date/Time: May 22:39 - CONCLUSION: 1. Chronic periventricular and subcortical white matter small vessel ischemic changes are stable. 2. No acute infarct, acute hemorrhage, mass effect or extra-axial fluid collections. Brock Chan MD Chest X-Ray 06/06/17 0000 Signed Impressions: Service Date/Time: May 22:17 - CONCLUSION: 1. Minimal left basilar streakiness consistent with atelectasis. 2. Elevation of the left hemidiaphragm. Brock Chan MD Pending results at discharge: No Medications # of Antipsychotic meds at D/C: 2 Appropriate >1 Antipsych meds?: 2 (would suggest gradual taper of risperdal with close observation once patient has further recovered) Approp Antipsych med options 1 - Minimum of three failed multiple trials of monotherapy. 2 - Documented plan to taper to monotherapy due to previous use of multiple meds OR cross-taper in progress at D/C. 3 - Documentation of augmentation of Clozapine. 4 - Justification other than those listed in allowable values 1-3, document here : Discharge Discharge Date: Jun 20, 2017 Discharge Diagnosis: (1) DEMENTIA IN OTH DISEASES CLASSD ELSWHR W BEHAVIORAL DISTURB Diagnosis: Principal ICD Code: F02.81 - DEMENTIA IN OTH DISEASES CLASSD ELSWHR W BEHAVIORAL DISTURB (2) OTHER ALZHEIMER'S DISEASE Diagnosis: Principal ICD Code: G30.8 - OTHER ALZHEIMER'S DISEASE Pt Condition on Discharge: Stable Discharge Disposition: Discharge to SNF Discharge Instructions Diet Instructions: As Tolerated, No Restrictions Activities you can perform: Regular-No Restrictions Scheduled Appointment: [place] [facility] Time > 30 minutes Mental Status Examination Appearance: Appropriate Consciousness: Alert Orientation: Person (vaguely) Motor Activity: Other (use his walker) Speech: Unremarkable Language: Adequate Fund of Knowledge: Adequate Attention and Concentration: Easily Distracted Memory: Impaired Mood: Anxious, Other (mildly dysphoric) Affect: Anxious Thought Process & Associations: Disorganized Thought Content: Bizarre thinking Hallucination Type: Tactile (denies today) Delusion Type: Bizarre (denies today) Suicidal Ideation: No Suicidal Plan: No Suicidal Intention: No Homicidal Ideation: No Homicidal Plan: No Homicidal Intention: No Insight: Poor Judgment: Poor Discharge/Advance Care Plan Health Problems: (1) OTHER ALZHEIMER'S DISEASE (2) DEMENTIA IN OTH DISEASES CLASSD ELSWHR W BEHAVIORAL DISTURB Goals to promote your health * To prevent worsening of your condition and complications * To maintain your health at the optimal level Directions to meet your goals Take your medications as prescribed Follow your dietary instruction Follow activity as directed Keep your appointments as scheduled Take your immunizations and boosters as scheduled If your symptoms worsen call your PCP, if no PCP go to Urgent Care Center or Emergency Room For 24/ questions related to your inpatient stay or results of tests pending at discharge, please contact Dr. Stanford Moody at Smoking is Dangerous to Your Health. Avoid second hand smoking Stanford Moody MD Jun 20, 2017 11:19
== END 2017-06-20 12:25 | DRG 885 ==
LOC: NEPE 19:18 → NEDA 06-07 00:54 → H260 06-07 01:35 → H250 06-07 18:33 → H4EA 06-11 17:15
PROVIDERS: ADMIT Psychiatry & Neurology Psychiatry; ATTEND Psychiatry & Neurology Psychiatry
DX: F23 Brief psychotic disorder (principal); G30.9 Alzheimer's disease, unspecified; F02.81 Dementia in other diseases classified elsewhere, unspecified severity, with behavioral disturbance; F41.9 Anxiety disorder, unspecified; E89.0 Postprocedural hypothyroidism; M19.90 Unspecified osteoarthritis, unspecified site; H91.90 Unspecified hearing loss, unspecified ear; Z85.89 Personal history of malignant neoplasm of other organs and systems; Z86.73 Personal history of transient ischemic attack (TIA), and cerebral infarction without residual deficits; Z88.0 Allergy status to penicillin; Z92.21 Personal history of antineoplastic chemotherapy; Z92.3 Personal history of irradiation; Z96.653 Presence of artificial knee joint, bilateral
CPT/HCPCS: 70450; 71010; 80048; 80053; 80061; 80307; 81001; 83036; 84443; 85025; 93005; Q0163

== ENCOUNTER 2017-08-07 10:22 | Emergency (ER) | payer MEDICARE ==
[~2017-08-07] VITALS: Ht 170.2 cm; Wt 75.0 kg
[~2017-08-07 10:22] MED LIST changes: -ALPR0.5T3 PO; -ESCI10TA PO; -LEVO500T8 PO; -QUET-1; -QUET1TAB7 PO; +QUET1TAB8 PO; +RISP1 PO
[2017-08-07 10:31] VITALS: BP 140/96; PULSE 94; RESP 16; TEMP 98.7; O2SAT 98
[2017-08-07] MEDS ORDERED: SODIUM CHLORIDE 0.9% FLUSH 10 ML FLUSH IV FLUSH PRN (10:45)
--- NOTE | 2017-08-07 10:48 | PD ---
HPI Chief Complaint: Altered Mental Status Time Seen by Provider: 10:26 Travel History International Travel<30 days: No Contact w/Intl Traveler<30days: No Traveled to known affect area: No History of Present Illness HPI Patient is a 76-year-old female presents emergency department from [facility] for evaluation of altered mental status. According to EMS the patient was last seen normal about 6:00 last night, normally has a history of having dementia but is normally conversant is able to carry on a full conversation, apparently she is only been able to order 1 or 2 words this morning. Therefore they sent her to the emergency department to be evaluated. The patient is not able to provide any history, PFSH Past Medical History Hx Anticoagulant Therapy: Yes (81 MG ASA) Arthritis: Yes Asthma: No Blood Disorders: No Anxiety: Yes Depression: No Heart Rhythm Problems: No Cancer: Yes (SALAVA GLAND) Cardiovascular Problems: No High Cholesterol: No Chemotherapy: Yes Chest Pain: No Congestive Heart Failure: No COPD: No Cerebrovascular Accident: Yes Dementia: Yes (LEWY BODY) Diabetes: No Diminished Hearing: Yes Endocrine: Yes Gastrointestinal Disorders: Yes (CONSTIPATION) Glaucoma: No Genitourinary: Yes (BURNING) Headaches: No Hepatitis: No Hiatal Hernia: No Hypertension: No Immune Disorder: No Implanted Vascular Access Dvce: Yes Kidney Stones: No Musculoskeletal: Yes (BILATERAL KNEE REPLACEMENT) Neurologic: No Psychiatric: No Reproductive: No Respiratory: No Immunizations Current: No Migraines: No Radiation Therapy: Yes (2007) Renal Failure: No Seizures: No Sleep Apnea: Yes (POSSIBLE) Thyroid Disease: Yes (THYROIDECTOMY) Tetanus Vaccination: Unknown Influenza Vaccination: Yes PNEUMOCCOCAL Vaccine (Year): 1 Menopausal: Yes Past Surgical History AICD: No Endocrine Surgery: Yes (THYROIDECTOMY) Eye Surgery: Yes (UPPER BLEP-GIULIA) Genitourinary Surgery: Yes (ANTERIOR REPAIR) Gynecologic Surgery: Yes (GIULIA BREAST REDUCTION) Hysterectomy: Yes Insulin Pump: No Joint Replacement: Yes (LEFT KNEE;RIGHT KNEE) Neurologic Surgery: Yes (LUMBAR LAMINECTOMY) Oral Surgery: Yes (JAW REP (YOUTH), SALIVARY GLAND CANCER SX) Pacemaker: No Thoracic Surgery: Yes (CLAVICLE REPAIR.) Other Surgery: Yes (FR JAW) Social History Alcohol Use: No Tobacco Use: No Substance Use: No Allergies-Medications (Allergen,Severity, Reaction): Coded Allergies: penicillin G (Unverified Allergy, Intermediate, HIVES, 2/7/18) Reported Meds & Prescriptions Reported Meds & Active Scripts Active Risperdal (Risperidone) 1 Mg Tab 1 Mg PO DIRECTED 1 po am, 2 po 4pm Quetiapine (Quetiapine Fumarate) 100 Mg Tab 150 Mg PO 1 1/2 HS Meloxicam 15 Mg Tab 15 Mg PO DAILY Docusate Sodium 100 Mg Cap 100 Mg PO DAILY Synthroid (Levothyroxine Sodium) 75 Mcg Tab 75 Mcg PO DAILY Clonazepam 0.5 Mg Tab 0.5 Mg PO HS Review of Systems ROS Limitations: Altered Mental Status Physical Exam Exam Limitations: Altered Mental Status Narrative GENERAL: Well-developed well-nourished in no obvious distress SKIN: Focused skin assessment warm/dry. HEAD: Atraumatic. Normocephalic. EYES: Pupils equal and round. No scleral icterus. No injection or drainage. ENT: No nasal bleeding or discharge. Mucous membranes pink and moist. NECK: Trachea midline. No JVD. CARDIOVASCULAR: Regular rate and rhythm. No murmur appreciated. RESPIRATORY: No accessory muscle use. Clear to auscultation. Breath sounds equal bilaterally. GASTROINTESTINAL: Abdomen soft, non-tender, nondistended. Hepatic and splenic margins not palpable. MUSCULOSKELETAL: No obvious deformities. No clubbing. No cyanosis. No edema. NEUROLOGICAL: Awake and alert. Follows commands in all 4 extremities, 5 out of 5 strength in all 4 extremities, cranial nerves appear to be intact. She relates within even narrow based gait and no ataxia. No central ataxia no peripheral ataxia. Patient speaks at 1-2 words at a time. PSYCHIATRIC: Appropriate mood and affect; insight and judgment normal. Data Data Last Documented VS Vital Signs Date Time Temp Pulse Resp B/P (MAP) Pulse Ox O2 Delivery O2 Flow Rate FiO2 08/07/17 13:56 08/07/17 12:20 76 16 98 Room Air 08/07/17 10:59 2.00 08/07/17 10:31 98.7 Orders Orders Electrocardiogram (08/07/17 10:32) Ammonia (08/07/17 10:32) Complete Blood Count With Diff (08/07/17 10:32) Comprehensive Metabolic Panel (08/07/17 10:32) Prothrombin Time / Inr (Pt) (08/07/17 10:32) Act Partial Throm Time (Ptt) (08/07/17 10:32) Troponin I (08/07/17 10:32) Thyroid Stimulating Hormone (08/07/17 10:32) Urinalysis - C+S If Indicated (08/07/17 10:32) Ct Brain W/O Iv Contrast(Rout) (08/07/17 10:32) Blood Glucose (08/07/17 10:32) Ecg Monitoring (08/07/17 10:32) Iv Access Insert/Monitor (08/07/17 10:32) Oximetry (08/07/17 10:32) Sodium Chloride 0.9% Flush (Ns Flush) (08/07/17 10:45) Urine Culture (08/07/17 10:50) Ed Discharge Order (08/07/17 13:45) Labs Laboratory Tests Test 08/07/17 10:50 White Blood Count 6.8 TH/MM3 Red Blood Count 4.30 MIL/MM3 Hemoglobin 14.2 GM/DL Hematocrit 40.6 % Mean Corpuscular Volume 94.5 FL Mean Corpuscular Hemoglobin 33.1 PG Mean Corpuscular Hemoglobin Concent 35.0 % Red Cell Distribution Width 13.0 % Platelet Count 187 TH/MM3 Mean Platelet Volume 8.2 FL Neutrophils (%) (Auto) 82.7 % Lymphocytes (%) (Auto) 9.5 % Monocytes (%) (Auto) 6.9 % Eosinophils (%) (Auto) 0.6 % Basophils (%) (Auto) 0.3 % Neutrophils # (Auto) 5.7 TH/MM3 Lymphocytes # (Auto) 0.6 TH/MM3 Monocytes # (Auto) 0.5 TH/MM3 Eosinophils # (Auto) 0.0 TH/MM3 Basophils # (Auto) 0.0 TH/MM3 CBC Comment DIFF FINAL Differential Comment Prothrombin Time 11.2 SEC Prothromb Time International Ratio 1.1 RATIO Activated Partial Thromboplast Time 18.2 SEC Urine Color YELLOW Urine Turbidity CLEAR Urine pH 5.5 Urine Specific [place] 1.018 Urine Protein TRACE mg/dL Urine Glucose (UA) NEG mg/dL Urine Ketones NEG mg/dL Urine Occult Blood TRACE Urine Nitrite NEG Urine Bilirubin NEG Urine Urobilinogen LESS THAN 2.0 MG/DL Urine Leukocyte Esterase NEG Urine RBC 1 /hpf Urine WBC 1 /hpf Urine Squamous Epithelial Cells <1 /hpf Urine Bacteria RARE /hpf Urine Hyaline Casts 1 /lpf Microscopic Urinalysis Comment CATH-CULTURE IND Blood Urea Nitrogen 26 MG/DL Creatinine 0.74 MG/DL Random Glucose 104 MG/DL Total Protein 6.2 GM/DL Albumin 3.7 GM/DL Calcium Level 8.4 MG/DL Alkaline Phosphatase 46 U/L Aspartate Amino Transf (AST/SGOT) 67 U/L Alanine Aminotransferase (ALT/SGPT) 37 U/L Total Bilirubin 0.9 MG/DL Sodium Level 141 MEQ/L Potassium Level 3.7 MEQ/L Chloride Level 106 MEQ/L Carbon Dioxide Level 28.9 MEQ/L Anion Gap 6 MEQ/L Estimat Glomerular Filtration Rate 77 ML/MIN Ammonia 23 MCMOL/L Troponin I LESS THAN 0.02 NG/ML Thyroid Stimulating Hormone 3rd Gen 7.930 uIU/ML MDM Medical Decision Making Medical Screen Exam Complete: Yes Emergency Medical Condition: Yes Differential Diagnosis Stroke, worsening dementia, lecturer at her memory, urinary tract infection. Narrative Course Patient room to the emergency department, really a phasic she is able to get 1 or 2 words out, family arrives and states that she is not very talkative at baseline but she was having some problems swallowing pills today, she passed a bedside swallow test has been able to ambulate to the bathroom with no assistance. She still unable to completely speak and appears as though she may have some expressive aphasia. I discussed this with the daughter and that this is possibly a symptom of a stroke. Could also be a symptom of worsening Lewy body dementia which she has a history of. I had suggested admission to the hospital for neurology consult as well as further testing with the patient says that she does not want to be admitted and is able to verbalize that she does not want to be admitted the family did not want her to be admitted either states they would f rather follow-up with their neurologist Dr. Sweeney. She is taking an aspirin. I discussed that if this is a stroke or could be a harbinger of additional strokes in the future which could leave her significantly disabled or even , discussed that if she wanted be admitted and have further tests including ultrasound and MRI she could do so but the family states the patient would not want any operations on her neck should she have carotid stenosis and would not want to be on blood thinners. I think with this counseling the family is making decisions as what they think is in the patient's best interest, for this reason she can be discharged and I reiterated that if they change their mind or would like to be seen for reevaluation the can to return to the emergency department at any time. Diagnosis Primary Impression: Altered mental status Disposition: 01 DISCHARGE HOME Condition: Stable Brock Nieto MD Aug 07, 2017 10:48
[2017-08-07 10:59] VITALS: O2SAT 95
[2017-08-07 11:02] LABS: AUTOMATED NEUTROPHIL # 5.7 TH/MM3 (1.8-7.7); BASOPHIL % 0.3 % (0.0-2.0); EOSINOPHIL % 0.6 % (0.0-4.0); HEMATOCRIT 40.6 % (35.0-46.0); HEMOGLOBIN 14.2 GM/DL (11.6-15.3); LYMPH % 9.5 % (9.0-44.0); LYMPHOCYTE # 0.6 TH/MM3 (1.0-4.8); MEAN CELL VOLUME 94.5 FL (80.0-100.0); MEAN CORPUSCULAR HEMOGLOBIN 33.1 PG (27.0-34.0); MEAN PLATELET VOLUME 8.2 FL (7.0-11.0); MONO % 6.9 % (0.0-8.0); MONOCYTE # 0.5 TH/MM3 (0-0.9); NEUT % 82.7 % (16.0-70.0); PLATELET COUNT 187 TH/MM3 (150-450); WHITE BLOOD COUNT 6.8 TH/MM3 (4.0-11.0)
[2017-08-07 11:10] LABS: BACTERIA, URINE RARE /hpf; BILIRUBIN, URINE NEG (NEG); BLOOD, URINE TRACE (NEG); GLUCOSE,URINE NEG (NEG); HYALINE CAST, URINE 1 /lpf (RARE); KETONE, URINE NEG (NEG); NITRITE,URINE NEG (NEG); PH, URINE 5.5 (5.0-8.5); SQUAMOUS EPITHELIAL CELL URINE <1 /hpf (0-5); URINE COLOR YELLOW (YELLW/STRAW); URINE LEUKOCYTE ESTERASE NEG (NEG)
[2017-08-07 11:16] LABS: INTERNATIONAL NORMALIZED RATIO 1.1 RATIO; PROTHROMBIN TIME - PATIENT 11.2 SEC (9.8-11.6)
[2017-08-07 11:17] LABS: ALBUMIN 3.7 GM/DL (3.4-5.0); ALT (GPT) 37 U/L (10-53); AST (GOT) 67 U/L (15-37); BICARBONATE 28.9 MEQ/L (21.0-32.0); BLOOD UREA NITROGEN 26 MG/DL (7-18); CALCIUM 8.4 MG/DL (8.5-10.1); CHLORIDE 106 MEQ/L (98-107); CREATININE 0.74 MG/DL (0.50-1.00); GLOMERULAR FILTRATION RATE 77 ML/MIN (>89); GLUCOSE,RANDOM 104 MG/DL (74-106); SODIUM (NA) 141 MEQ/L (136-145)
[2017-08-07 11:27] LABS: ALKALINE PHOSPHATASE 46 U/L (45-117); TOTAL BILIRUBIN ADULT 0.9 MG/DL (0.2-1.0); TOTAL PROTEIN 6.2 GM/DL (6.4-8.2); TROPONIN I LESS THAN 0.02 NG/ML (0.02-0.05)
--- NOTE | 2017-08-07 11:52 | RADRPT ---
EXAM DATE/TIME: 08/07/2017 11:14 [place] COMPARISON: CT BRAIN W/O CONTRAST, June 06, 2017, 22:39. INDICATIONS : Altered mental status RADIATION DOSE: 30 CTDIvol (mGy) MEDICAL HISTORY : Non-responsive. SURGICAL HISTORY : Non-responsive. ENCOUNTER: Initial ACUITY: 1 day PAIN SCALE: 0/10 LOCATION: cranial TECHNIQUE: Multiple contiguous axial images were obtained of the head. Using automated exposure control and adj ustment of the mA and/or kV according to patient size, radiation dose was kept as low as reasonably a chievable to obtain optimal diagnostic quality images. DICOM format image data is available electro nically for review and comparison. FINDINGS: CEREBRUM: The ventricles are normal for age. No evidence of midline shift, mass lesion, hemorrhage or acute in farction. No extra-axial fluid collections are seen. Minimal periventricular white matter changes. POSTERIOR FOSSA: The cerebellum and brainstem are intact. The 4th ventricle is midline. The cerebellopontine angle i s unremarkable. EXTRACRANIAL: The visualized portion of the orbits is intact. SKULL: The calvaria is intact. No evidence of skull fracture. CONCLUSION: Negative for acute process. Emmanuel Watson MD FACR on August 07, 2017 at 11:41 Board Certified Radiologist. This report was verified electronically.
[2017-08-07 12:20] VITALS: BP 137/86; PULSE 76; RESP 16; O2SAT 98
--- NOTE | 2017-08-08 20:24 | EKG ---
Date Performed: 08/07/2017 Time Performed: 10:52:52 PTAGE: 76 years EKG: Sinus rhythm INFERIOR MYOCARDIAL INFARCTION ABNORMAL ECG Since the prior tracing, there has been no significant c luiz PREVIOUS TRACING : 06/06/2017 20.34 DOCTOR: Willy Duffy Interpretating Date/Time 08/08/2017 20:19:59
== END 2017-08-07 14:08 | disposition home or self-care (01) ==
LOC: NEPC 10:22
DX: R41.82 Altered mental status, unspecified (principal); F03.90 Unspecified dementia, unspecified severity, without behavioral disturbance, psychotic disturbance, mood disturbance, and anxiety; F41.9 Anxiety disorder, unspecified; M19.90 Unspecified osteoarthritis, unspecified site; R94.31 Abnormal electrocardiogram [ECG] [EKG]; Z86.73 Personal history of transient ischemic attack (TIA), and cerebral infarction without residual deficits; Z88.0 Allergy status to penicillin; Z79.82 Long term (current) use of aspirin; Z79.899 Other long term (current) drug therapy
CPT/HCPCS: 70450; 80053; 81001; 82140; 84443; 84484; 85025; 85610; 85730; 87086; 93005

== ENCOUNTER 2017-09-24 17:52 | Emergency (ER) | payer MEDICARE ==
[~2017-09-24] VITALS: Ht 165.1 cm; Wt 79.0 kg
[2017-09-24 17:57] VITALS: BP 141/91; PULSE 87; RESP 16; TEMP 97.8; O2SAT 96
--- NOTE | 2017-09-24 18:34 | PD ---
HPI Chief Complaint: Fall Time Seen by Provider: 18:06 Travel History International Travel<30 days: No Contact w/Intl Traveler<30days: No Traveled to known affect area: No History of Present Illness HPI 76-year-old female who is on hospice with advanced dementia presents after she had a unwitnessed fall. She had an outpatient x-ray that showed a fracture to her left wrist. Her daughter provides paperwork that shows that she has a distal radius and ulnar fracture. Patient denies complaints but is a very poor historian. History is mainly obtained from the daughter. Patient's daughter states she is here for a splint and not wanting other workup at this time. She is not on any blood thinner medication. PFSH Past Medical History Hx Anticoagulant Therapy: No Arthritis: Yes Asthma: No Blood Disorders: No Anxiety: Yes Depression: No Heart Rhythm Problems: No Cancer: Yes (SALAVA GLAND) Cardiovascular Problems: No High Cholesterol: No Chemotherapy: Yes Chest Pain: No Congestive Heart Failure: No COPD: No Cerebrovascular Accident: Yes Dementia: Yes (LEWY BODY) Diabetes: No Diminished Hearing: Yes Endocrine: Yes Gastrointestinal Disorders: Yes (CONSTIPATION) Glaucoma: No Genitourinary: Yes (BURNING) Headaches: No Hepatitis: No Hiatal Hernia: No Hypertension: No Immune Disorder: No Implanted Vascular Access Dvce: Yes Kidney Stones: No Musculoskeletal: Yes (BILATERAL KNEE REPLACEMENT) Neurologic: No Psychiatric: No Reproductive: No Respiratory: No Immunizations Current: No Migraines: No Radiation Therapy: Yes (2007) Renal Failure: No Seizures: No Sleep Apnea: Yes (POSSIBLE) Thyroid Disease: Yes (THYROIDECTOMY) PNEUMOCCOCAL Vaccine (Year): 1 ?: Not Menopausal: Yes Past Surgical History AICD: No Endocrine Surgery: Yes (THYROIDECTOMY) Eye Surgery: Yes (UPPER BLEP-GIULIA) Genitourinary Surgery: Yes (ANTERIOR REPAIR) Gynecologic Surgery: Yes (GIULIA BREAST REDUCTION) Hysterectomy: Yes Insulin Pump: No Joint Replacement: Yes (LEFT KNEE;RIGHT KNEE) Neurologic Surgery: Yes (LUMBAR LAMINECTOMY) Oral Surgery: Yes (JAW REP (YOUTH), SALIVARY GLAND CANCER SX) Pacemaker: No Thoracic Surgery: Yes (CLAVICLE REPAIR.) Other Surgery: Yes (FR JAW) Social History Alcohol Use: No Tobacco Use: No Substance Use: No Allergies-Medications (Allergen,Severity, Reaction): Coded Allergies: penicillin G (Unverified Allergy, Intermediate, HIVES, 09/24/17) Reported Meds & Prescriptions Reported Meds & Active Scripts Active Risperdal (Risperidone) 1 Mg Tab 1 Mg PO DIRECTED 1 po am, 2 po 4pm Quetiapine (Quetiapine Fumarate) 100 Mg Tab 150 Mg PO 1 1/2 HS Meloxicam 15 Mg Tab 15 Mg PO DAILY Docusate Sodium 100 Mg Cap 100 Mg PO DAILY Synthroid (Levothyroxine Sodium) 75 Mcg Tab 75 Mcg PO DAILY Clonazepam 0.5 Mg Tab 0.5 Mg PO HS Review of Systems ROS Limitations: Poor Historian Except as stated in HPI: all other systems reviewed are Neg Physical Exam Exam Limitations: Poor Historian Narrative GENERAL: 76-year-old female in no apparent distress SKIN: Focused skin assessment warm/dry. HEAD: Atraumatic. Normocephalic. EYES: Pupils equal and round. No scleral icterus. No injection or drainage. ENT: No nasal bleeding or discharge. Mucous membranes pink and moist. NECK: Trachea midline. No pain with range of motion of neck CARDIOVASCULAR: Regular rate and rhythm. RESPIRATORY: No accessory muscle use. Clear to auscultation. Breath sounds equal bilaterally. GASTROINTESTINAL: Abdomen soft, non-tender, nondistended. MUSCULOSKELETAL: Pain with palpation of right wrist with swelling, no pain with other joints , neurovascularly intact, no lacerations over, compartments soft. NEUROLOGICAL: Awake. moves all extremities. Normal speech. Data Data Last Documented VS Vital Signs Date Time Temp Pulse Resp B/P (MAP) Pulse Ox O2 Delivery O2 Flow Rate FiO2 09/24/17 17:57 97.8 87 16 141/91 (108) 96 Orders Orders Splint Or Brace Apply/Monitor (09/24/17 18:09) Fiberglass Sugartong Sp Ad Arm (09/24/17 ) Sling Cradle Arm (09/24/17 ) Ed Discharge Order (09/24/17 18:33) MDM Medical Decision Making Medical Screen Exam Complete: Yes Emergency Medical Condition: Yes Medical Record Reviewed: Yes (pmh confirmed) Interpretation(s) Outpatient x-ray states patient has a distal radius and ulnar styloid process fracture Differential Diagnosis Fracture, strain, concurrent injury Narrative Course Lengthy discussion with daughter and she is not wanting other workup or testing for possible cause the fall or concurrent injuries. Patient is on hospice with advanced dementia. She is requesting a splint which was placed. Given return instructions. Diagnosis Primary Impression: Wrist fracture, right Qualified Codes: S62.101A - Fracture of unspecified carpal bone, right wrist, initial encounter for closed fracture Patient Instructions: General Instructions Additional Instructions: return as needed, follow with ortho doctor this week, continue outpatient medication for pain as needed Med/Other Pt SpecificInfo: No Change to Meds Disposition: 03 DISCHARGE TO SNF Condition: Stable Kamryn Kirk MD Sep 24, 2017 18:34
== END 2017-09-24 18:55 ==
LOC: PHED 17:52
DX: S62.101A Fracture of unspecified carpal bone, right wrist, initial encounter for closed fracture (principal); W19.XXXA Unspecified fall, initial encounter; F03.90 Unspecified dementia, unspecified severity, without behavioral disturbance, psychotic disturbance, mood disturbance, and anxiety; M19.90 Unspecified osteoarthritis, unspecified site; H91.90 Unspecified hearing loss, unspecified ear; F41.9 Anxiety disorder, unspecified; Z86.73 Personal history of transient ischemic attack (TIA), and cerebral infarction without residual deficits; Z96.653 Presence of artificial knee joint, bilateral; Z88.0 Allergy status to penicillin
CPT/HCPCS: 29125

== ENCOUNTER 2018-01-23 03:14 | Observation (INO) ==
--- NOTE | 2018-01-23 03:29 | ED ---
HPI General Chief Complaint: Fall Stated Complaint: Injury from fall Time Seen by Provider: 01/23/18 03:21 Source: EMS and old records reviewed Mode of arrival: EMS Limitations: altered mental status (Patient has a history of advanced dementia and is not very talkative or interactive. Upon arrival the patient was simply just sitting and staring) History of Present Illness HPI Narrative: Per [facility] she was last seen on bed check at around 1230, then she was found approximately 30 minutes prior to EMS arrival on the ground. Patient was assisted back up onto the bed and was found to have abrasions to the right side of her head and cheek as well as bruises to her lower extremities. Per chart review the patient is a hospice patient for advanced dementia. MD complaint: fall Fall from: out of bed Fall witnessed: no Place fall occurred: [facility] Loss of consciousness: unsure Prolonged down time: no Symptoms prior to fall: none Location of injury: head and face Related Data Home Medications Medication Instructions Recorded Confirmed clonazepam 0.5 mg PO DAILY 01/23/18 01/23/18 clonazepam 1 mg PO HS 01/23/18 01/23/18 furosemide 20 mg PO DAILY 01/23/18 01/23/18 levothyroxine 75 mcg PO DAILY 01/23/18 01/23/18 meloxicam 15 mg PO DAILY 01/23/18 01/23/18 omeprazole 20 mg PO DAILY 01/23/18 01/23/18 quetiapine 50 mg PO DAILY 01/23/18 01/23/18 quetiapine 150 mg PO HS 01/23/18 01/23/18 risperidone 1 mg PO TID 01/23/18 01/23/18 temazepam 15 mg PO HS 01/23/18 01/23/18 Allergies Allergy/AdvReac Type Severity Reaction Status Date / Time penicillin G Allergy Intermediate HIVES Verified 01/23/18 04:16 Review of Systems Except as stated in HPI: all other systems reviewed are negative PMFSH History History Provided By: Inseamer / EMT Social History Social History Substance History: Unable to Obtain Smoking Status: Unknown if ever smoked How Often Do You Have a Drink Containing Alcohol: Unable to Obtain Recent Travel in [facility] within the Last 8 Weeks: No Recent Out of Country Travel within the Last 8 Weeks: No Exam Narrative Exam Narrative: GENERAL: Well-nourished, well-developed patient in no apparent distress. SKIN: Warm and dry. HEAD: Normocephalic. Abrasion to right side of cheek and scalp no major lacerations noted EYES: Pupils equal and round. No scleral icterus. No injection or drainage. ENT: No nasal bleeding or discharge. Mucous membranes pink and moist. NECK: Trachea midline. No JVD. CARDIOVASCULAR: Regular rate and rhythm. no rubs or gallops RESPIRATORY: No accessory muscle use. Clear to auscultation. Breath sounds equal bilaterally. GASTROINTESTINAL: Abdomen soft, non-tender, nondistended. No rebound or guarding MUSCULOSKELETAL: Extremities without clubbing, cyanosis, or edema. No obvious deformities. NEUROLOGICAL: Awake not verbally responsive sitting staring out into distance Course Initial Documented Vital Signs Temperature 98.8 F 01/23/18 03:21 Pulse Rate 95 H 01/23/18 03:21 Respiratory Rate 16 01/23/18 03:21 Blood Pressure 127/68 01/23/18 03:21 Pulse Oximetry 95 01/23/18 03:21 Last Documented Vital Signs Temperature 98.8 F 01/23/18 03:21 Pulse Rate 83 01/23/18 05:19 Respiratory Rate 14 01/23/18 05:19 Blood Pressure 117/73 01/23/18 05:19 Pulse Oximetry 99 01/23/18 05:19 Medical Decision Making Lab Data Lab results reviewed: Yes I reviewed the patient's lab results. Result diagrams: 01/23/18 03:45 01/23/18 03:45 Lab Results 01/23/18 01/23/18 01/23/18 Range/Units 03:45 03:45 03:45 WBC 7.4 (4.0-11.0) th/mm3 RBC 4.76 (4.00-5.30) mil/mm3 Hgb 15.6 H (11.6-15.3) gm/dL Hct 45.5 (35.0-46.0) % MCV 95.6 (80.0-100.0) fL MCH 32.8 (27.0-34.0) pg MCHC 34.3 (32.0-36.0) % RDW 13.4 (11.6-17.2) % Plt Count 183 (150-450) th/mm3 MPV 8.3 (7.0-11.0) fL Neut % (Auto) 90.9 H (16.0-70.0) % Lymph % (Auto) 4.5 L (9.0-44.0) % [place] % (Auto) 3.4 (0.0-8.0) % Eos % (Auto) 0.6 (0.0-4.0) % Baso % (Auto) 0.6 (0.0-2.0) % Neut # (Auto) 6.7 (1.8-7.7) th/mm3 Lymph # (Auto) 0.3 L (1.0-4.8) th/mm3 [place] # (Auto) 0.2 (0.0-0.9) th/mm3 Eos # (Auto) 0.0 (0.0-0.4) th/mm3 Baso # (Auto) 0.0 (0.0-0.2) th/mm3 WBC Differential . Differential Comment Auto diff final Sodium 144 (136-145) meq/L Potassium 4.0 (3.5-5.1) meq/L Chloride 106 (98-107) meq/L Carbon Dioxide 29.6 (21.0-32.0) meq/L Anion Gap 8 (5-15) meq/L BUN 22 H (7-18) mg/dL Creatinine 0.88 (0.50-1.00) mg/dL Estimated GFR 62 L (>89) mL/min POC Glucose (68-110) mg/dl Random Glucose 118 H (74-106) mg/dL Calcium 8.6 (8.5-10.1) mg/dL Total Bilirubin 1.0 (0.2-1.0) mg/dL AST 26 (15-37) U/L ALT 27 (10-53) U/L Alkaline Phosphatase 60 (45-117) U/L Troponin I Less than 0.02 L (0.02-0.05) ng/mL Total Protein 7.3 (6.4-8.2) g/dL Albumin 4.2 (3.4-5.0) g/dL TSH 21.100 H (0.358-3.740) uIU/mL Urine Color Yellow (Yellw/Straw) Urine Clarity Clear (Clear) Urine pH 5.0 (5.0-8.5) Ur Specific [place] 1.017 (1.002-1.035) Urine Protein Negative (Neg-Trace) mg/dL Urine Glucose (UA) Negative (Negative) mg/dL Urine Ketones Negative (Negative) mg/dL Urine Occult Blood Negative (Negative) Urine Nitrate Negative (Negative) Urine Bilirubin Negative (Negative) Urine Urobilinogen Less than 2 (Less than 2) mg/dL Ur Leukocyte Esterase Negative (Negative) Urine RBC 1 (0-3) /hpf Urine WBC 1 (0-5) /hpf Urine Bacteria Rare H (None) /hpf Hyaline Casts 1 (0-3) /lpf Urine Mucus Few H (Occasional) /lpf Micro UA Comment Cath-culture ind Urine Culture Comments Cath-cult indicated 01/23/18 Range/Units 04:10 WBC (4.0-11.0) th/mm3 RBC (4.00-5.30) mil/mm3 Hgb (11.6-15.3) gm/dL Hct (35.0-46.0) % MCV (80.0-100.0) fL MCH (27.0-34.0) pg MCHC (32.0-36.0) % RDW (11.6-17.2) % Plt Count (150-450) th/mm3 MPV (7.0-11.0) fL Neut % (Auto) (16.0-70.0) % Lymph % (Auto) (9.0-44.0) % [place] % (Auto) (0.0-8.0) % Eos % (Auto) (0.0-4.0) % Baso % (Auto) (0.0-2.0) % Neut # (Auto) (1.8-7.7) th/mm3 Lymph # (Auto) (1.0-4.8) th/mm3 [place] # (Auto) (0.0-0.9) th/mm3 Eos # (Auto) (0.0-0.4) th/mm3 Baso # (Auto) (0.0-0.2) th/mm3 WBC Differential Differential Comment Sodium (136-145) meq/L Potassium (3.5-5.1) meq/L Chloride (98-107) meq/L Carbon Dioxide (21.0-32.0) meq/L Anion Gap (5-15) meq/L BUN (7-18) mg/dL Creatinine (0.50-1.00) mg/dL Estimated GFR (>89) mL/min POC Glucose 111 H (68-110) mg/dl Random Glucose (74-106) mg/dL Calcium (8.5-10.1) mg/dL Total Bilirubin (0.2-1.0) mg/dL AST (15-37) U/L ALT (10-53) U/L Alkaline Phosphatase (45-117) U/L Troponin I (0.02-0.05) ng/mL Total Protein (6.4-8.2) g/dL Albumin (3.4-5.0) g/dL TSH (0.358-3.740) uIU/mL Urine Color (Yellw/Straw) Urine Clarity (Clear) Urine pH (5.0-8.5) Ur Specific [place] (1.002-1.035) Urine Protein (Neg-Trace) mg/dL Urine Glucose (UA) (Negative) mg/dL Urine Ketones (Negative) mg/dL Urine Occult Blood (Negative) Urine Nitrate (Negative) Urine Bilirubin (Negative) Urine Urobilinogen (Less than 2) mg/dL Ur Leukocyte Esterase (Negative) Urine RBC (0-3) /hpf Urine WBC (0-5) /hpf Urine Bacteria (None) /hpf Hyaline Casts (0-3) /lpf Urine Mucus (Occasional) /lpf Micro UA Comment Urine Culture Comments Imaging Data Attestation: I personally reviewed and interpreted this imaging study as follows : My impression: Due to technical difficulties the radiology reports have not been crossing over to THR Head CT read by radiologist shows a subtle area of increased density in the region of the right frontoparietal region this was not clearly present previously and therefore a small subtle area of parenchymal contusion cannot be excluded recommend repeat CT scan in 12-24 hours to ensure stability Cervical CT spine read by radiologist shows moderate spinal stenosis at C3-4-5, no acute fracture, severe loss of disc height from C3-C4 inferiorly, multilevel degenerative disc disease,grade 1 anterolisthesis of C2 on 3 C3 L4 and C7 on T1 with a minimal grade 1 retrolisthesis of C4 on 5 Chest x-ray read by radiologist as no acute cardiopulmonary process or fracture , possible chronic rotator cuff injury on the right Fracture through distal radial metadiaphysis with dorsal angulation of the distal fragment screw in it there is some chronicity to this injury probable ulnar fracture as well which appears well-corticated Radiologist's impression: Cervical Spine CT 01/23/18 03:21 CONCLUSION: Chest X-Ray 01/23/18 03:21 CONCLUSION: Head CT 01/23/18 03:21 CONCLUSION: Wrist X-Ray 01/23/18 03:24 CONCLUSION: Discharge Plan Discharge Disposition Patient Disposition: 30 Still Patient Discharge Condition Condition: Stable Discharge Details Diagnosis: Brain contusion, Hypothyroid Physicians Team ED Provider: Kingsley Siddiqui Primary Care Provider: UNKNOWN, Attending Provider: Aure Sanchez Discharge Interventions Interventions: Vital Signs Last Done: 01/23/18 03:51 Status ED Status: Admitted Observation Patient
[2018-01-23 03:58] LABS: Baso % (Auto) 0.6 % (0.0-2.0); Eos % (Auto) 0.6 % (0.0-4.0); Hematocrit 45.5 % (35.0-46.0); Hemoglobin 15.6 gm/dL (11.6-15.3); Lymph # (Auto) 0.3 th/mm3 (1.0-4.8); Lymph % (Auto) 4.5 % (9.0-44.0); Mean Corpuscular HGB Conc 34.3 % (32.0-36.0); Mean Corpuscular Hemoglobin 32.8 pg (27.0-34.0); Mean Corpuscular Volume 95.6 fL (80.0-100.0); Mean Platelet Volume 8.3 fL (7.0-11.0); Mono # (Auto) 0.2 th/mm3 (0.0-0.9); Mono % (Auto) 3.4 % (0.0-8.0); Neut # (Auto) 6.7 th/mm3 (1.8-7.7); Neut % (Auto) 90.9 % (16.0-70.0); Platelet Count 183 th/mm3 (150-450); Red Blood Count 4.76 mil/mm3 (4.00-5.30); Red Cell Distribution Width 13.4 % (11.6-17.2); White Blood Count 7.4 th/mm3 (4.0-11.0)
[2018-01-23 04:06] LABS: Bacteria,Urine Rare /hpf; Bilirubin,Urine Negative (Negative); Clarity,Urine Clear (Clear); Color,Urine Yellow (Yellw/Straw); Glucose,Urine (UA) Negative (Negative); Hyaline Casts,Urine 1 /lpf (0-3); Leukocyte Esterase,Urine Negative (Negative); Mucus,Urine Few /lpf (Occasional); Nitrite,Urine Negative (Negative); Specific Gravity,Urine 1.017 (1.002-1.035)
[2018-01-23 04:28] LABS: Albumin 4.2 g/dL (3.4-5.0); Anion Gap 8 meq/L (5-15); Aspartate Aminotransferase 26 U/L (15-37); Blood Urea Nitrogen 22 mg/dL (7-18); Calcium 8.6 mg/dL (8.5-10.1); Carbon Dioxide 29.6 meq/L (21.0-32.0); Chloride 106 meq/L (98-107); Glomerular Filtration Rate 62 mL/min (>89); Glucose,Random 118 mg/dL (74-106); Sodium 144 meq/L (136-145)
[2018-01-23 04:35] LABS: Alanine Aminotransferase 27 U/L (10-53); Alkaline Phosphatase 60 U/L (45-117); Total Protein 7.3 g/dL (6.4-8.2)
--- NOTE | 2018-01-23 04:57 | CT ---
EXAM DATE: 01/23/2018 4:39 AM EDT AGE/SEX: 77 years / Female INDICATIONS: Trauma; fall. CLINICAL DATA: This is the patient's initial encounter. Patient reports that signs and symptoms have been present for 1 day and indicates a pain score of 5/10. MEDICAL/SURGICAL HISTORY: . neck injury. None. RADIATION DOSE: 20.70 CTDI (mGy) COMPARISON: [facility], MR LUMBAR SPINE W/O CONTRAST, 08/28/2014. . TECHNIQUE: Contiguous axial images were obtained using helical multirow detector technique. The vol umetric data was post-processed with multiplanar reconstruction in oblique axial, sagittal, and coron al planes. Using automated exposure control and adjustment of the mA and/or kV according to patient s ize, radiation dose was kept as low as reasonably achievable to obtain optimal diagnostic quality shauna ges. DICOM format image data is available electronically for review and comparison. FINDINGS: Sagittal and coronal reconstruction show multilevel degenerative disc disease with loss of disc heigh t at every cervical level. There is straightening of the normal lordotic curvature with a grade 1 ant erolisthesis of C2 on 3, C3 on 4 and C7 on T1 with a grade 1 retrolisthesis of C4 on 5. Uncovertebral ridging is seen at multiple levels with prominent posterior components from C4-5 through C6-7 with s ome minimal spinal stenosis at C4-5. C2-3: Bilateral facet hypertrophy. Mild uncovertebral ridging. Spinal canal and neural foramina are adequate. C3-4: Uncovertebral ridging encroaches on the anterior epidural space. In combination with the high grade I anterolisthesis of C3 on 4, there is moderate spinal stenosis at this level. Both neural fora duong are adequate C4-5: Right-sided facet hypertrophy. Arthritic vertebral ridging encroaches on the anterior epidural space and may abut up against the cord. Both neural foramina are adequate C5-6: Uncovertebral ridging with right-sided facet hypertrophy. Spinal canal and neural foramina are adequate C6-7: Mild uncovertebral ridging. Spinal canal and neural foramina are adequate C7-T1: The bony spinal canal is normal in size. No evidence of disc bulge or herniation. The neura l foramina are bilaterally patent. 1. Straightening of the normal lordotic curvature with multilevel degenerative disc disease. Severe loss of disc height from C3-4 inferiorly. 2. Grade 1 anterolisthesis of C2 on 3, C3 on 4 and C7 on T1 with a minimal grade 1 retrolisthesis of C4 on 5. 3. Moderate spinal stenosis at both C3-4 and C4-5 as detailed above. 4. Despite the uncovertebral ridging and multilevel facet hypertrophy, neural foramina appear to be adequate throughout. 5. No acute fracture. Electronically signed by: Thiago Velazco MD 01/23/2018 4:56 AM EDT
--- NOTE | 2018-01-23 05:03 | CT ---
EXAM DATE: 01/23/2018 4:30 AM EDT AGE/SEX: 77 years / Female INDICATIONS: Headache post fall. CLINICAL DATA: This is the patient's initial encounter. Patient reports that signs and symptoms have been present for 1 day and indicates a pain score of 6/10. MEDICAL/SURGICAL HISTORY: None. None. RADIATION DOSE: 56.35 CTDI (mGy) COMPARISON: [facility] – [place], [place] BRAIN W/O CONTRAST, 08/07/2017. . TECHNIQUE: CT of the head without contrast. Using automated exposure control and adjustment of the mA and/or kV according to patient size, radiation dose was kept as low as reasonably achievable to ob tain optimal diagnostic quality images. DICOM format image data is available electronically for revi ew and comparison. FINDINGS: Cerebrum: The ventricles are normal for age. Very faint area of increased density identified in the right frontoparietal region was not clearly present previously and could represent a very subtle area of parenchymal contusion. Otherwise, stable moderately severe periventricular areas of diminished si gnal intensity. No midline shift. No extraaxial fluid collections are seen. Posterior Fossa: The cerebellum and brainstem are intact. The 4th ventricle is midline. The cerebe llopontine angle is unremarkable. Extracranial: The visualized portion of the orbits is intact. Skull: The calvaria is intact. No evidence of skull fracture. 1. Chronic changes with moderately severe periventricular small vessel ischemic demyelination. 2. Very subtle area of increased density in the region of the right frontal parietal region (images 16 and 17). This was not clearly present previously and therefore, I cannot exclude a small, subtle a charis of parenchymal contusion. Recommend repeat CT scan in 12 to 24 hours to ensure stability. . Electronically signed by: Thiago Velazco MD 01/23/2018 5:02 AM EDT
--- NOTE | 2018-01-23 05:07 | XR ---
EXAM DATE: 01/23/2018 4:09 AM EDT AGE/SEX: 77 years / Female INDICATIONS: Short of breath. Fall. CLINICAL DATA: This is the patient's initial encounter. Patient reports that signs and symptoms have been present for 1 day and indicates a pain score of Nonresponsive. MEDICAL/SURGICAL HISTORY: . Stroke. Dementia. Alzheimer's disease. Non-responsive. COMPARISON: [facility] [place] [facility] [place]ST SINGLE AP, 06/06/2017. . FINDINGS: A single AP view of the chest demonstrates the lungs to be symmetrically aerated without evidence of mass, infiltrate or effusion. The cardiomediastinal contours are unremarkable. Osseous structures a re intact. Right shoulder appears to be "high riding" although this is a slightly apical lordotic vie w. CONCLUSION: 1. No acute cardiac pulmonary process/fracture. 2. Possible chronic rotator cuff injury on the right. Electronically signed by: Thiago Velazco MD 01/23/2018 5:06 AM EDT
--- NOTE | 2018-01-23 05:15 | XR ---
EXAM DATE: 01/23/2018 4:07 AM EDT AGE/SEX: 77 years / Female INDICATIONS: Previous injury to wrist, patient had wrist brace on upon arrival. CLINICAL DATA: This is the patient's initial encounter. Patient reports that signs and symptoms have been present for 1 day and indicates a pain score of Nonresponsive. MEDICAL/SURGICAL HISTORY: None. None. COMPARISON: [facility], XR WRIST (MIN 3 VIEWS), RIGHT, 08/23/2017. . FINDINGS: Fracture deformity of the distal radial metadiaphysis with some dorsal angulation of the distal fragm ent. However, this may be a chronic injury with some bony bridging across the fracture fragments. The re also appears to be a small ulnar styloid fracture as well corticated. Osseous structures are other lawrence intact CONCLUSION: 1. Fracture through the distal radial metadiaphysis with dorsal angulation of the distal fragment. T here may be some chronicity to this injury with findings of bony bridging. 2. Probable ulnar styloid fracture as well which appears well-corticated. Electronically signed by: Thiago Velazco MD 01/23/2018 5:13 AM EDT
[2018-01-23] MEDS ORDERED: Temazepam 15 MG Capsule PO PRN (05:18)
[2018-01-23] MEDS ORDERED: Bisacodyl 10 MG Supp RECTAL PRN (05:18)
[2018-01-23] MEDS ORDERED: Acetaminophen 325 MG Tablet PO PRN (05:18)
[2018-01-23] MEDS ORDERED: Levothyroxine 75 MCG Tablet PO SCH (06:00)
--- NOTE | 2018-01-23 08:29 | P.HP ---
History of Present Illness Primary Care Physician: UNKNOWN Chief Complaint: Fall History of Present Illness: 77-year-old female with history of CVA, advanced dementia, presents after a fall from her group home. The patient is currently awake, alert, however does not answer orientation questions, will not tell me her name. She is minimally verbal. She denies any pain. States "I think I have to use the bathroom". Does not answer any further questions. History obtained from ER report and EMR. Reportedly the patient was last seen on bed check at 1230, and was found on the floor 30 minutes later. She was assisted back up to the bed, but found to have abrasions to the right side of the face and bruises on her lower extremities. The patient is on hospice for advanced dementia. The patient is unable to provide any history of events leading up to her admission. She does not answer any review of system questions. Review of Systems unobtainable due to mental condition PMFSH - History History Provided By: Medical Record, Motor Builder Winder / EMT - Medical History Medical History: Medical History (Last Reviewed 01/23/18 @ 10:06 by Reema Limon) CVA (cerebral vascular accident) Cancer of salivary gland H/O thyroidectomy Hiatal hernia History of hysterectomy Hypothyroidism Lewy body dementia - Surgical History Surgical History: Surgical History (Last Updated 01/23/18 @ 10:06 by Reema Limon) History of bilateral breast reduction surgery History of lumbar laminectomy Hx of total knee arthroplasty - Family History Family History: Family History (Last Updated 01/23/18 @ 10:09 by Reema Limon) Mother Diabetes Father Esophageal cancer Other Family history unobtainable due to patient's condition - Tobacco History Smoking Status: Never smoker - Alcohol History How Often Do You Have a Drink Containing Alcohol: Never - Substance Use History Substance History: Unable to Obtain - Travel History Recent Travel in the [place] Within the Last 8 Weeks: No Recent Travel Out of the Country Within the Last 8 Weeks: No - Immunization History Tetanus Immunization: Unable to Assess Hx Influenza Vaccine This Season: Unable to Assess Medications and Allergies Active Medications: Active Medications Acetaminophen (Tylenol) 650 mg PO Q4H PRN PRN Reason: Temp > 100.4 Al Hydroxide/Mg Hydroxide (Milk Of Magnesia Liq) 30 ml PO Q12H PRN PRN Reason: Mild Constipation Bisacodyl (Dulcolax Supp) 10 mg RECTAL DAILY PRN PRN Reason: SEVERE CONSITIPATION Clonazepam (Klonopin) 1 mg PO HS [facility] Clonazepam (Klonopin) 0.5 mg PO DAILY [facility] Furosemide (Lasix) 20 mg PO DAILY [facility] Lactulose (Lactulose Liq) 30 ml PO DAILY PRN PRN Reason: SEVERE CONSITIPATION Levothyroxine Sodium (Synthroid) 75 mcg PO DAILY@0600 [facility] Last Admin: 01/23/18 06:45 Dose: 75 mcg Ondansetron HCl (Zofran Inj) 4 mg IV.PUSH Q6H PRN PRN Reason: NAUSEA OR VOMITING Pantoprazole Sodium (Protonix) 20 mg PO DAILY [facility] Quetiapine Fumarate (Seroquel) 50 mg PO DAILY [facility] Quetiapine Fumarate (Seroquel) 150 mg PO HS [facility] Risperidone (Risperdal) 1 mg PO TID [facility] Senna/Docusate Sodium (Felicia-Colace) 1 tab PO BID [facility] Sennosides (Senokot) 17.2 mg PO Q12H PRN PRN Reason: Moderate Constipation Sodium Chloride (Ns Flush) 2 ml IV.FLUSH BID ALLISON Sodium Chloride (Ns Flush) 2 ml IV.FLUSH PRN PRN PRN Reason: FLUSH AFTER USING IV ACCESS Temazepam (Restoril) 15 mg PO HS PRN PRN Reason: INSOMNIA Allergies Allergy/AdvReac Type Severity Reaction Status Date / Time penicillin G Allergy Intermediate HIVES Verified 01/23/18 04:16 Home Medications Medication Instructions Recorded Confirmed Type clonazepam 0.5 mg PO DAILY 01/23/18 01/23/18 History clonazepam 1 mg PO HS 01/23/18 01/23/18 History furosemide 20 mg PO DAILY 01/23/18 01/23/18 History levothyroxine 75 mcg PO DAILY 01/23/18 01/23/18 History meloxicam 15 mg PO DAILY 01/23/18 01/23/18 History omeprazole 20 mg PO DAILY 01/23/18 01/23/18 History quetiapine 50 mg PO DAILY 01/23/18 01/23/18 History quetiapine 150 mg PO HS 01/23/18 01/23/18 History risperidone 1 mg PO TID 01/23/18 01/23/18 History temazepam 15 mg PO HS 01/23/18 01/23/18 History Exam Vital signs: Vital Signs 01/23/18 03:21 01/23/18 03:36 01/23/18 03:51 Temperature 98.8 F Pulse Rate 95 H 95 H Respiratory Rate 16 16 Blood Pressure 127/68 127/68 Pulse Oximetry 95 95 95 01/23/18 05:19 01/23/18 06:32 01/23/18 08:04 Temperature Pulse Rate 83 85 77 Respiratory Rate 14 14 14 Blood Pressure 117/73 120/74 117/61 Pulse Oximetry 99 100 99 Intake & Output 01/22/18 01/23/18 01/23/18 18:59 06:59 18:59 Weight 77 kg Narrative: GENERAL: Well-nourished, well-developed elderly female patient in [facility]. SKIN: Warm and dry. No rash. Superficial abrasion at right cheek. HEAD: Normocephalic. Atraumatic. EYES: Pupils equal and round. No scleral icterus. No injection or drainage. ENT: No nasal bleeding or discharge. Mucous membranes pink and moist. NECK: Supple. Trachea midline. CARDIOVASCULAR: Regular rate and rhythm. No murmur appreciated. RESPIRATORY: No accessory muscle use. Clear to auscultation. Breath sounds equal bilaterally. GASTROINTESTINAL: Abdomen soft, non-tender, nondistended. Normoactive bowel sounds x4. MUSCULOSKELETAL: No obvious deformities. Extremities without clubbing, cyanosis , or edema. NEUROLOGICAL: Awake and alert. No obvious cranial nerve deficits. Motor grossly within normal limits. Normal speech however minimally verbal. PSYCHIATRIC: Calm mood; insight and judgment poor. Results - Labs CBC & Chem 7: 01/23/18 03:45 01/23/18 03:45 Labs: Laboratory Results - last 24 hr 01/23/18 01/23/18 01/23/18 03:45 03:45 03:45 WBC 7.4 RBC 4.76 Hgb 15.6 H Hct 45.5 MCV 95.6 MCH 32.8 MCHC 34.3 RDW 13.4 Plt Count 183 MPV 8.3 Neut % (Auto) 90.9 H Lymph % (Auto) 4.5 L [place] % (Auto) 3.4 Eos % (Auto) 0.6 Baso % (Auto) 0.6 Neut # (Auto) 6.7 Lymph # (Auto) 0.3 L [place] # (Auto) 0.2 Eos # (Auto) 0.0 Baso # (Auto) 0.0 WBC Differential . Differential Comment Auto diff final Sodium 144 Potassium 4.0 Chloride 106 Carbon Dioxide 29.6 Anion Gap 8 BUN 22 H Creatinine 0.88 Estimated GFR 62 L POC Glucose Random Glucose 118 H Calcium 8.6 Total Bilirubin 1.0 AST 26 ALT 27 Alkaline Phosphatase 60 Troponin I Less than 0.02 L Total Protein 7.3 Albumin 4.2 TSH 21.100 H Urine Color Yellow Urine Clarity Clear Urine pH 5.0 Ur Specific [place] 1.017 Urine Protein Negative Urine Glucose (UA) Negative Urine Ketones Negative Urine Occult Blood Negative Urine Nitrate Negative Urine Bilirubin Negative Urine Urobilinogen Less than 2 Ur Leukocyte Esterase Negative Urine RBC 1 Urine WBC 1 Urine Bacteria Rare H Hyaline Casts 1 Urine Mucus Few H Micro UA Comment Cath-culture ind Urine Culture Comments Cath-cult indicated 01/23/18 04:10 WBC RBC Hgb Hct MCV MCH MCHC RDW Plt Count MPV Neut % (Auto) Lymph % (Auto) [place] % (Auto) Eos % (Auto) Baso % (Auto) Neut # (Auto) Lymph # (Auto) [place] # (Auto) Eos # (Auto) Baso # (Auto) WBC Differential Differential Comment Sodium Potassium Chloride Carbon Dioxide Anion Gap BUN Creatinine Estimated GFR POC Glucose 111 H Random Glucose Calcium Total Bilirubin AST ALT Alkaline Phosphatase Troponin I Total Protein Albumin TSH Urine Color Urine Clarity Urine pH Ur Specific [place] Urine Protein Urine Glucose (UA) Urine Ketones Urine Occult Blood Urine Nitrate Urine Bilirubin Urine Urobilinogen Ur Leukocyte Esterase Urine RBC Urine WBC Urine Bacteria Hyaline Casts Urine Mucus Micro UA Comment Urine Culture Comments - Imaging Impressions Cervical Spine CT 01/23/18 03:21 CONCLUSION: Chest X-Ray 01/23/18 03:21 CONCLUSION: Head CT 01/23/18 03:21 CONCLUSION: Wrist X-Ray 01/23/18 03:24 CONCLUSION: Caprini VTE Risk Assessment Caprini VTE Risk Assessment: Moderate/High Risk (score >= 2) Caprini Risk Assessment Model: Point Value = 1 Point Value = 2 Point Value = 3 Point Value = 5 Age 41-60 Minor surgery BMI > 25 kg/m2 Swollen legs Varicose veins or History of unexplained or recurrent spontaneous Oral contraceptives or hormone replacement Sepsis (< 1 month) Serious lung disease, including pneumonia (< 1 month) Abnormal pulmonary function Acute myocardial infarction Congestive heart failure (< 1 month) History of inflammatory bowel disease Medical patient at bed rest Age 61-74 Arthroscopic surgery Major open surgery (> 45 min) Laparoscopic surgery (> 45 min) Malignancy Confined to bed (> 72 hours) Immobilizing plaster cast Central venous access Age >= 75 History of VTE Family history of VTE Factor V Leiden Prothrombin [id number] Lupus anticoagulant Anticardiolipin antibodies Elevated serum homocysteine Heparin-induced thrombocytopenia Other congenital or acquired thrombophilia Stroke (< 1 month) Elective arthroplasty Hip, pelvis, or leg fracture Acute spinal cord injury (< 1 month) Prophylaxis Regimen: Total Risk Factor Score Risk Level Prophylaxis Regimen 0-1 Low Early ambulation 2 Moderate Order ONE of the following: *Sequential Compression Device (SCD) *Heparin 5000 units SQ BID 3-4 Higher Order ONE of the following medications: *Heparin 5000 units SQ TID *Enoxaparin/Lovenox 40 mg SQ daily (WT < 150 kg, CrCl > 30 mL/min) *Enoxaparin/Lovenox 30 mg SQ daily (WT < 150 kg, CrCl > 10-29 mL/min) *Enoxaparin/Lovenox 30 mg SQ BID (WT < 150 kg, CrCl > 30 mL/min) AND/OR *Sequential Compression Device (SCD) 5 or more Highest Order ONE of the following medications: *Heparin 5000 units SQ TID (Preferred with Epidurals) *Enoxaparin/Lovenox 40 mg SQ daily (WT < 150 kg, CrCl > 30 mL/min) *Enoxaparin/Lovenox 30 mg SQ daily (WT < 150 kg, CrCl > 10-29 mL/min) *Enoxaparin/Lovenox 30 mg SQ BID (WT < 150 kg, CrCl > 30 mL/min) AND *Sequential Compression Device (SCD) Assessment and Plan - Plan 77-year-old female with history of CVA, advanced dementia, presents after a fall from her group home. She is minimally verbal. She is reportedly on hospice for advanced dementia. Fall with Head Contusion: unclear etiology, suspect generalized weakness with advanced dementia. Suspect mechanical slip and fall, however uncertain if any loss of consciousness. -Head CT reviewed, shows subtle area of increased density in the region of the right frontoparietal region this was not clearly present previously and therefore a small subtle area of parenchymal contusion cannot be excluded recommend repeat CT scan in 12-24 hours to ensure stability -Cervical CT spine read by radiologist shows moderate spinal stenosis at C3-4 -5, no acute fracture, severe loss of disc height from C3-C4 inferiorly, multilevel degenerative disc disease,grade 1 anterolisthesis of C2 on 3 C3 L4 and C7 on T1 with a minimal grade 1 retrolisthesis of C4 on 5 -Wrist xray shows Fracture through distal radial metadiaphysis with dorsal angulation of the distal fragment screw in it there is some chronicity to this injury probable ulnar fracture as well which appears well-corticated (patient already has wrist splint in place from old fracture) -Chest xray reviewed, no acute findings -UA negative -Consult PT -will repeat head CT in 12 hours at 3pm today -neuro checks -check orthostatics -monitor on telemetry -patient also with multiple sedating medications possibly contributing ( clonazepam, temazepam, seroquel), will discontinue temazepam Hypothyroidism: s/p thyroidectomy -TSH significantly elevated at 21 -Will increase patient's levothyroxine from 75mcg to 100mcg -repeat TSH/T4 in 6 weeks as outpatient Dementia: chronic -continue patient's home meds All other medical conditions stable, continue home meds as appropriate. DVT Prophylaxis: holding chemoprophylaxis with head contusion as above. Discharge Planning: Obtaining repeat head CT this afternoon. Can likely d/c back to hospice if stable.
[2018-01-23] MEDS: clonazePAM 0.5 MG Tablet PO SCH (09:03)
[2018-01-23] MEDS: Pantoprazole Sodium 20 MG DR Tablet PO SCH (09:03)
[2018-01-23] MEDS: Furosemide 20 MG Tablet PO SCH (09:05)
[2018-01-23] MEDS: QUEtiapine 25 MG Tablet PO SCH (09:05)
[2018-01-23] MEDS: Senna/Docusate Sodium 8.6/50 MG Tablet PO SCH ×2 (09:05→20:54)
--- NOTE | 2018-01-23 16:04 | CT ---
EXAM DATE: 01/23/2018 3:54 PM EDT AGE/SEX: 77 years / Female INDICATIONS: Follow up head injury from this morning. No abnormality on prior head CT with very subt le area of increased density along the right frontal parietal region. CLINICAL DATA: This is the patient's initial encounter. Patient reports that signs and symptoms have been present for 1 day and indicates a pain score of 2/10. MEDICAL/SURGICAL HISTORY: . Cancer of salivary gland, dementia. None. RADIATION DOSE: 37.01 CTDI (mGy) [place] [facility] [place]. . TECHNIQUE: CT of the head without contrast. Using automated exposure control and adjustment of the mA and/or kV according to patient size, radiation dose was kept as low as reasonably achievable to ob tain optimal diagnostic quality images. DICOM format image data is available electronically for revi ew and comparison. FINDINGS: Cerebrum: The ventricles are normal for age with mild to moderate atrophic change. Chronic small ves albertina ischemic changes are present as well. No evidence of midline shift, mass lesion, hemorrhage or ac brenton infarction. No extraaxial fluid collections are seen. Posterior Fossa: The cerebellum and brainstem are intact. The 4th ventricle is midline. The cerebe llopontine angle is unremarkable. Extracranial: The visualized portion of the orbits is intact. Skull: The calvaria is intact. No evidence of skull fracture. 1. The previously noted subtle area of increased density along the right frontal convexities is no l onger distinctly visualized and likely was artifactual. 2. No acute hemorrhage or mass effect. . Electronically signed by: Chriss Cosby MD 01/23/2018 4:03 PM EDT
[2018-01-23] MEDS ORDERED: QUEtiapine 100 MG Tablet PO SCH (21:00)
[2018-01-23] MEDS ORDERED: clonazePAM 1 MG Tablet PO SCH (21:00)
[2018-01-24] MEDS ORDERED: Levothyroxine 100 MCG Tablet PO SCH (06:00)
[2018-01-24 07:45] LABS: Baso % (Auto) 0.7 % (0.0-2.0); Eos # (Auto) 0.2 th/mm3 (0.0-0.4); Eos % (Auto) 6.8 % (0.0-4.0); Hematocrit 39.3 % (35.0-46.0); Hemoglobin 13.6 gm/dL (11.6-15.3); Lymph # (Auto) 0.7 th/mm3 (1.0-4.8); Lymph % (Auto) 19.6 % (9.0-44.0); Mean Corpuscular HGB Conc 34.5 % (32.0-36.0); Mean Corpuscular Hemoglobin 32.7 pg (27.0-34.0); Mean Corpuscular Volume 94.7 fL (80.0-100.0); Mean Platelet Volume 8.6 fL (7.0-11.0); Mono # (Auto) 0.3 th/mm3 (0.0-0.9); Mono % (Auto) 7.4 % (0.0-8.0); Neut # (Auto) 2.3 th/mm3 (1.8-7.7); Neut % (Auto) 65.5 % (16.0-70.0); Platelet Count 167 th/mm3 (150-450); Red Blood Count 4.15 mil/mm3 (4.00-5.30); Red Cell Distribution Width 13.3 % (11.6-17.2); White Blood Count 3.5 th/mm3 (4.0-11.0)
[2018-01-24 08:28] LABS: Calcium 8.3 mg/dL (8.5-10.1); Carbon Dioxide 29.5 meq/L (21.0-32.0); Potassium 3.4 meq/L (3.5-5.1)
[2018-01-24] MEDS: Furosemide 20 MG Tablet PO SCH (08:34)
[2018-01-24] MEDS: QUEtiapine 25 MG Tablet PO SCH (08:34)
[2018-01-24] MEDS: Pantoprazole Sodium 20 MG DR Tablet PO SCH (08:34)
[2018-01-24] MEDS: Senna/Docusate Sodium 8.6/50 MG Tablet PO SCH (08:35)
[2018-01-24] MEDS: clonazePAM 0.5 MG Tablet PO SCH (08:40)
--- NOTE | 2018-01-24 15:26 | P.PN ---
Subjective Interval history: Follow up for fall, brain contusion. The patient is awake, alert, however nonverbal with me today. No acute events reported overnight. Vital signs reviewed and stable. Repeat head CT shows contusion resolved. Physical Exam Vital signs: Vital Signs 01/23/18 16:00 01/23/18 19:12 01/23/18 21:07 Temperature 97.7 F 98.0 F Pulse Rate 90 90 Respiratory Rate 16 18 Blood Pressure 109/66 137/77 Pulse Oximetry 94 L 94 L 96 01/23/18 23:48 01/24/18 03:35 01/24/18 07:38 Temperature 97.3 F L 97.2 F L 97.6 F Pulse Rate 95 H 78 80 Respiratory Rate 18 20 16 Blood Pressure 125/83 117/79 116/71 Pulse Oximetry 92 L 94 L 94 L 01/24/18 08:00 01/24/18 12:04 Temperature 96.2 F L Pulse Rate 87 Respiratory Rate 18 Blood Pressure 137/74 Pulse Oximetry 98 92 L Intake & Output 01/23/18 01/24/18 01/24/18 18:59 06:59 18:59 Intake Total 400 / 400 240 / 240 Output Total 500 / 500 Balance 400 / 400 -260 / -260 Intake: Oral 400 / 400 240 / 240 Output: Urine 500 / 500 Other: # Voids 1 # Bowel Movements 0 Narrative: GENERAL: Well-nourished, well-developed elderly female patient in [facility]. SKIN: Warm and dry. No rash. Superficial abrasion at right forehead and cheek. HEENT: Normocephalic. Atraumatic. Pupils equal and round. Mucous membranes pink and moist. CARDIOVASCULAR: Regular rate and rhythm. No murmur appreciated. RESPIRATORY: No accessory muscle use. Clear to auscultation. Breath sounds equal bilaterally. GASTROINTESTINAL: Abdomen soft, non-tender, nondistended. Normoactive bowel sounds x4. MUSCULOSKELETAL: No obvious deformities. Extremities without clubbing, cyanosis , or edema. NEUROLOGICAL: Awake and alert. No obvious cranial nerve deficits. Motor grossly within normal limits. Normal speech however minimally verbal. PSYCHIATRIC: Calm mood; insight and judgment poor. - Urinary Catheter Management Straight Cath placed during this visit: yes Reason for continuing: Not indwelling catheter Insertion date: 01/23/18 Insertion time: 03:52 Results - Labs CBC & Chem 7: 01/24/18 06:02 01/24/18 06:02 Laboratory Results - last 24 hr 01/24/18 01/24/18 06:02 06:02 WBC 3.5 L RBC 4.15 Hgb 13.6 D Hct 39.3 MCV 94.7 MCH 32.7 MCHC 34.5 RDW 13.3 Plt Count 167 MPV 8.6 Neut % (Auto) 65.5 Lymph % (Auto) 19.6 [place] % (Auto) 7.4 Eos % (Auto) 6.8 H Baso % (Auto) 0.7 Neut # (Auto) 2.3 Lymph # (Auto) 0.7 L [place] # (Auto) 0.3 Eos # (Auto) 0.2 Baso # (Auto) 0.0 WBC Differential . Differential Comment Auto diff final Sodium 144 Potassium 3.4 L Chloride 106 Carbon Dioxide 29.5 Anion Gap 9 BUN 18 Creatinine 0.67 Estimated GFR 86 L Random Glucose 82 Calcium 8.3 L Microbiology 01/23/18 03:45 Catheterized Urine Urine Culture - Preliminary No growth in 24 hours - Imaging Impressions Chest X-Ray 01/23/18 03:21 CONCLUSION: 1. No acute cardiac pulmonary process/fracture. 2. Possible chronic rotator cuff injury on the right. Wrist X-Ray 01/23/18 03:24 CONCLUSION: 1. Fracture through the distal radial metadiaphysis with dorsal angulation of the distal fragment. There may be some chronicity to this injury with findings of bony bridging. 2. Probable ulnar styloid fracture as well which appears well-corticated. Head CT 01/23/18 15:30 CONCLUSION: Assessment and Plan - Plan 77-year-old female with history of CVA, advanced dementia, presents after a fall from her [place] [facility]. She is minimally verbal. She is reportedly on hospice for advanced dementia. Fall with Head Contusion: unclear etiology, suspect generalized weakness with advanced dementia. Suspect mechanical slip and fall, however uncertain if any loss of consciousness. -Head CT reviewed, shows subtle area of increased density in the region of the right frontoparietal region this was not clearly present previously and therefore a small subtle area of parenchymal contusion cannot be excluded recommend repeat CT scan in 12-24 hours to ensure stability -Cervical CT spine read by radiologist shows moderate spinal stenosis at C3-4 -5, no acute fracture, severe loss of disc height from C3-C4 inferiorly, multilevel degenerative disc disease,grade 1 anterolisthesis of C2 on 3 C3 L4 and C7 on T1 with a minimal grade 1 retrolisthesis of C4 on 5 -Wrist xray shows Fracture through distal radial metadiaphysis with dorsal angulation of the distal fragment screw in it there is some chronicity to this injury probable ulnar fracture as well which appears well-corticated (patient already has wrist splint in place from old fracture) -Repeat head CT after 12 hours from initial scan, showed previously noted subtle area of increased density along the right frontal convexities is no longer distinctly visualized and likely was artifactual. No acute hemorrhage or mass effect. -patient with multiple sedating medications at bedtime, possibly contributing (clonazepam, temazepam, seroquel), will discontinue temazepam -Chest xray reviewed, no acute findings -UA negative -Consult PT -neuro checks -monitor on telemetry -patient appears at baseline, stable for discharge to [facility] with hospice Hypothyroidism: s/p thyroidectomy -TSH significantly elevated at 21 -Will increase patient's levothyroxine from 75mcg to 100mcg -repeat TSH/T4 in 6 weeks as outpatient Dementia: chronic -continue patient's home meds All other medical conditions stable, continue home meds as appropriate. DVT Prophylaxis: held chemoprophylaxis with head contusion as above. Discharge Planning: Discharge patient to [facility] with hospice Condition on discharge: Stable Regular Diet as tolerated [place] activity Rx written: levothyroxine 100mcg daily Follow-up with primary care physician within 1 week
== END 2018-01-24 15:47 ==
LOC: NEPC 03:14 → NEDA 03:14 → NEPHCDU 03:14 → NEDA 13:04 → NEPHCDU 13:04
PROVIDERS: ADMIT Internal Medicine; ATTEND Internal Medicine